=== PATIENT | male | born 1960 | race Caucasian/White ===

== ENCOUNTER 2018-02-15 16:02 | Inpatient (IN) | payer OTHER ==
[~2018-02-15] VITALS: Ht 162.6 cm; Wt 61.2 kg
[2018-02-15 16:06] VITALS: BP 133/89
--- NOTE | 2018-02-15 16:10 | NUR ---
PT. CAME INTO THE ED DUE TO CP X 3 DAYS AND FEELING HEART RACING. PT. STATES " I ATE SOME BAD CHICKEN ABOUT 3 DAYS AGO AND EVER SINCE THEN I THREW UP ONCE AND HAVE HAD DIARRHEA AND NOW I JUST FEEL MY HEART RACING AND MY CHEST HURTS". 8/10 SHARP CHEST PAIN THAT RADIATES TO BILAT ARMS AND DESCRIBED TINGLING. PT ABLE TO SPEAK IN FULL AND COMPLETE SENTENCES AND ALERT AND AWAKE AND RESPONSIVE. C/O NAUSEA. DENIES VOMITING . DIARRHEA X 3 DAYS LIQUID YELLOW. ER MD MADE AWARE. HR: 133 AT THIS TIME. NON DIAPHORETIC. SAFETY PRECAUTIONS IMPLEMENTED. WILL CONTINUE TO MONITOR.
[2018-02-15 17:21] LABS: BASOPHILS % (AUTO) 0.4 % (0.0-2.0); EOSINOPHILS # (AUTO) 0.1 K/uL (0-0.4); EOSINOPHILS % (AUTO) 1.5 % (0.0-4.0); HEMATOCRIT 33.8 % (36-52); HEMOGLOBIN 10.4 g/dL (12.0-18.0); LYMPHOCYTES # (AUTO) 1.1 K/uL (2.0-11.5); LYMPHOCYTES % (AUTO) 22.1 % (20.5-51.1); MEAN CORPUSCULAR HEMOGLOBIN 24 pg (27-31); MEAN CORPUSCULAR HGB CONC 31 g/dL (33-37); MEAN CORPUSCULAR VOLUME 76.6 fL (80-94); MONOCYTES # (AUTO) 0.4 K/uL (0.8-1.0); MONOCYTES % (AUTO) 7.8 % (1.7-9.3); NEUTROPHILS # (AUTO) 3.4 K/uL (1.8-7.7); NEUTROPHILS % (AUTO) 68.2 % (42.2-75.2); PLATELET COUNT (AUTO) 136 K/uL (140-450); RED BLOOD CELL COUNT(AUTO) 4.41 MIL/uL (4.20-6.10); RED CELL DISTRIBUTION WIDTH 22.5 % (11.6-13.7); WHITE BLOOD COUNT (AUTO) 4.9 K/uL (4.8-10.8)
[2018-02-15] MEDS ORDERED: ASPIRIN 81 MG TAB.CHEW PO ONE (17:25)
[2018-02-15] MEDS ORDERED: METOPROLOL 5 MG/5 ML VIAL IVP ONE (17:25)
--- NOTE | 2018-02-15 17:30 | NUR ---
PT. RESTING IN BED, PROVIDED WITH BLANKETS. PT AWAKE AND RESPONSIVE. WILL CONTINUE TO MONITOR.
--- NOTE | 2018-02-15 17:39 | NUR ---
HR: 134 LOPRESSOR 1MG IV PUSH GIVEN PER MD ORDER, HR: 100 AT THIS TIME. ER MD LATIF NOTIFIED. VERBAL ORDER TO HOLD GIVING ANY MORE LOPRESSOR. WILL CONTINUE TO MONITOR.
[2018-02-15 17:46] LABS: ANION GAP 13.7 (8-16); CREATININE 1.3 mg/dL (0.7-1.3); POTASSIUM 4.7 mmol/L (3.5-5.1)
[2018-02-15 17:49] LABS: ALBUMIN 2.3 g/dL (3.4-5.0); TOTAL BILIRUBIN 0.6 mg/dL (0.0-1.0)
--- NOTE | 2018-02-15 18:20 | NUR ---
PT. RESTING COMFORTABLY IN BED, RR EVEN AND UNLABORED. SLEEPING COMFORTABLY. WILL CONTINUE TO MONITOR.
[2018-02-15 19:15] LABS: BARBITURATE, URINE NEG. ng/ml (NEG <=200); BENZODIAZEPINE, URINE NEG. ng/mL (NEG <=200); CANNABINOID, URINE NEG. ng/mL (NEG <=50); COCAINE, URINE NEG. ng/mL (NEG <=300); OPIATE, URINE NEG. ng/mL (NEG <=2000); PHENCYCLIDINE SCREEN,URINE NEG. ng/mL (NEG <=25)
--- NOTE | 2018-02-15 19:20 | NUR ---
Pt report given to SONY TRUONG . Transfer of care at this time.
[2018-02-15] MEDS ORDERED: LORazepam 2 MG/ML VIAL IVP PRN (19:25)
[2018-02-15] MEDS ORDERED: ZOLPIDEM 5 MG TAB PO PRN (19:25)
[2018-02-15] MEDS ORDERED: MORPHINE SULFATE 2 MG/ML SYR IVP PRN (19:25)
[2018-02-15] MEDS ORDERED: DEXTROSE 50% 50 ML SYR IVP PRN (19:25)
[2018-02-15] MEDS ORDERED: ACETAMINOPHEN 325 MG TAB PO PRN (19:25)
[2018-02-15] MEDS ORDERED: NITROGLYCERIN 0.4 MG TAB SL PRN (19:25)
[2018-02-15] MEDS ORDERED: ONDANSETRON 4 MG/2 ML VIAL IVP PRN (19:25)
[2018-02-15] MEDS ORDERED: HYDROcodone/APAP 5/325 MG 1 TAB TAB PO PRN (19:25)
--- NOTE | 2018-02-15 19:30 | NUR ---
PT LAYING IN BED, AWAKE, VSS, PENDING ADMISSION.
--- NOTE | 2018-02-15 20:30 | NUR ---
Patient will be admitted to care of DR TORRES. Admited to TELE. Will go to room 105-A. Belongings list completed. Report to SONY GRECO.
--- NOTE | 2018-02-15 20:30 | NUR ---
ADMITTED THIS 58 YEAR OLD MALE FROM ER PER YOSEF WITH CC OF CHEST PAIN AND GENERALIZED WEAKNESS, AMBULATED TO BED WITH STEADY GAIT, ASSESSMENT DONE, VITAL SIGNS TAKEN, HR-118, FLUTTER ON TELE, BP STABLE, COMPLAINING OF NON-RADIATING CHEST PAIN, WILL MEDICATE PRN, NO SOB NOTED, SKIN INTACT WITH MULTIPLE TATTOOS TO MARBELLA ARMS, ORIENTED TO ROOM AND CALL LIGHT, PLAN OF CARE DISCUSS, SAFETY MEASURES IN PLACE, CALL LIGHT WITHIN REACH.
[2018-02-15] MEDS: SIMVASTATIN 20 MG TAB PO SCH (20:59)
[2018-02-15 21:00] VITALS: BP 122/77
[2018-02-15] MEDS: METOPROLOL 25 MG TAB PO SCH (21:00)
--- NOTE | 2018-02-15 21:00 | NUR ---
MEDICATED PRN FOR CHEST PAIN, DUE PO MEDS GIVEN WITH EDUCATION PROVIDED, BLOOD SUGAR CHECK WITH 91 RESULT, OFFERED SANDWICH BUT PT PREFER CRACKERS AT THIS TIME, RT WILIAM ASSESSED THE PT BUT NO RESP INTERVENTION AT THIS TIME, ALL NEEDS ATTENDED.
[2018-02-15] MEDS: BLOOD GLUCOSE MONITORING 1 DEV DEV FS SCH (21:01)
[2018-02-15] MEDS ORDERED: INFLUENZA VIRUS VACCINE QUAD 0.5 ML SYR IMVAC PRN (21:50)
[2018-02-16] VITALS (7 sets, daily range): BP systolic 103–137; BP diastolic 65–84
--- NOTE | 2018-02-16 00:20 | NUR ---
PT AMBULATED TO BR WITH STEADY GAIT TO TRY TO HAVE A BM, HR WENT UP TO 125-130 BPM WHILE WALKING, ASYMPTOMATIC, NO SOB NOTED, UNABLE TO HAVE A BM AT THIS TIME, PROVIDED WITH PRUNE JUICE, CONTINUE TO MONITOR CLOSELY.
[2018-02-16] MEDS: ALBUTEROL 0.083% 2.5 MG/3 ML NEBU INH SCH ×4 (00:22→19:02)
--- NOTE | 2018-02-16 01:44 | NUR ---
PT HR MAINTAINED ON 131-132 BPM ATRIAL FLUTTER WITH BBB, VITAL SIGNS TAKEN, BP-124/85, HR-131, SAT-99%, RR-20, TEMP-98.0, PT AWAKE, NO DISTRESS NOTED, PAGED DR MATIAS WITH ORDER TO GIVE METOPROLOL 5MG IVP ONE TIME DOSE, WILL CARRY OUT.
--- NOTE | 2018-02-16 01:56 | NUR ---
METOPROLOL 5MG IVP GIVEN ORDERED, HR OF 131 BPM IMMEDIATELY DROP TO 98-103 BPM WITH VARIABLE FLUTTER, PT ASYMPTOMATIC, MONITORED CLOSELY.
[2018-02-16] MEDS ORDERED: METOPROLOL 5 MG/5 ML VIAL IVP SCH (02:00)
[2018-02-16 02:49] LABS: CREATINE KINASE MB 2.3 ng/mL (0-3.6)
[2018-02-16] MEDS: MORPHINE SULFATE 2 MG/ML SYR IVP PRN ×4 (03:34→20:09)
--- NOTE | 2018-02-16 03:35 | NUR ---
PT BACK FROM , COMPLAINING OF CHEST PAIN, VITAL SIGNS TAKEN:BP-124/84, HR-122, RR-20, SAT-98%, MEDICATED PRN WITH MORPHINE IVP, MONITORED CLOSELY.
--- NOTE | 2018-02-16 04:30 | NUR ---
PT SLEEPING, NO SIGNS OF DISTRESS, ATRIAL FIB ON TELE WITH HR OF 104 BPM, CONTINUE TO MONITOR CLOSELY.
[2018-02-16 04:43] LABS: HEMATOCRIT 34.3 % (36-52); HEMOGLOBIN 10.6 g/dL (12.0-18.0); MEAN CORPUSCULAR HEMOGLOBIN 23 pg (27-31); MEAN CORPUSCULAR HGB CONC 31 g/dL (33-37); MEAN CORPUSCULAR VOLUME 75.8 fL (80-94); PLATELET COUNT (AUTO) 126 K/uL (140-450); RED BLOOD CELL COUNT(AUTO) 4.53 MIL/uL (4.20-6.10); RED CELL DISTRIBUTION WIDTH 22.9 % (11.6-13.7); WHITE BLOOD COUNT (AUTO) 5.1 K/uL (4.8-10.8)
[2018-02-16 05:32] LABS: ANION GAP 15.8 (8-16); CARBON DIOXIDE 18.5 mmol/L (21-32); CREATININE 1.2 mg/dL (0.7-1.3); POTASSIUM 4.3 mmol/L (3.5-5.1)
--- NOTE | 2018-02-16 05:50 | NUR ---
BLOOD SUGAR CHECKED WITH 79 RESULT, ASYMPTOMATIC, ORANGE JUICE X2 PROVIDED, TOLERATED WELL, NO DISTRESS NOTED.
[2018-02-16] MEDS: BLOOD GLUCOSE MONITORING 1 DEV DEV FS SCH ×4 (06:31→20:38)
[2018-02-16 07:05] LABS: EOSINOPHILS % (MANUAL) 1 % (0-4); LYMPHOCYTES % (MANUAL) 26 % (20-46); MONOCYTES % (MANUAL) 6 % (5-12)
--- NOTE | 2018-02-16 07:10 | NUR ---
PT SLEEPING, NO SIGNS OF DISTRESS, REPORT GIVEN TO SONY LORENZO FOR CONTINUITY OF CARE.
--- NOTE | 2018-02-16 07:15 | NUR ---
RECEIVED PT FROM COAL AND ASH SUPERVISOR NURSEANGUS, PT IS ASLEEP LYING ON THE BED WITH SIDE RAILS UP AND CALL LIGHT WITHIN REACH, RESPIRATION IS EVEN AND PT IS ON 2L O2 NC IN PLACED, SAFETY AND FALL PRECAUTION ENFORCED. PT HAS AN IV LINE ON SALINE LOCK ON THE LEFT FA G. 22, INTACT, WILL CONTINUE TO MONITOR PT.
[2018-02-16] MEDS: ASPIRIN 81 MG TAB.CHEW PO SCH (08:18)
[2018-02-16] MEDS: METOPROLOL 25 MG TAB PO SCH ×2 (08:18→20:08)
--- NOTE | 2018-02-16 08:20 | NUR ---
INFORMED DR. TORRES THAT PT WANTS TO BE PUT ON DNR CODE, DR. TORRES AFFIXED SIGNATURE ON THE CODE STATUS FORM.
[2018-02-16] MEDS: ENOXAPARIN 40 MG/0.4 ML SYR SUBQ SCH (08:24)
--- NOTE | 2018-02-16 08:39 | NUR ---
PATIENT HAS BEEN SCREENED AND CATEGORIZED HIGH NUTRITION RISK. PATIENT WILL BE SEEN WITHIN 1-2 DAYS OF ADMISSION. 02/16/18-02/17/[address]
--- NOTE | 2018-02-16 08:42 | NUR ---
PT IS AWAKE AND ORAL MEDICATIONS WERE GIVEN, AND PT TOLERATED IT, LOVENOX WAS HOLD OFF DUE TO LOW PLATELET COUNT, INFORMED DR. TORRES. WILL CONTINUE TO MONITOR PT.
[2018-02-16] MEDS ORDERED: FUROSEMIDE 40 MG TAB PO SCH (09:00)
--- NOTE | 2018-02-16 10:27 | NUR ---
CRUZ FROM [facility] CALLED AND IS RECOMMENDING A CARDIAC AND CCHO DIET FOR THE PT, ACKNOWLEDGED.
--- NOTE | 2018-02-16 10:41 | NUR ---
KERMIT FROM CALLED AND INFORMED THAT PT WAS BEING ARRANGED FOR AN APPOINTMENT WITH [facility] AND KERMIT FROM SPOKE TO AMALIA AND AMALIA SAID THAT PT NEEDS TO BE THE ONE TO CALL THE CLINIC HIMSELF AND SET AN APPOINTMENT WITH THEM FOR THE REASON THAT PT HAD MISSED 3 SCHEDULED APPOINTMENTS IN THE PAST, ACKNOWLEDGED KERMIT FROM AND WILL INFORM PT ABOUT IT.
--- NOTE | 2018-02-16 10:45 | NUR ---
Called Dr. [facility]uera[facility] clinic to make follow up appointment for patient Rodriguez Ribera and spoke with Mary. Mary wants Mr. Rodriguez Ribera to call the clinic and make his own appointment since he has failed to show up the last 3 appointments he had. Notified Bhakti nurse of Mr. Rodriguez Ribera to give instructions upon discharge that patient himself has to make the follow up appointment with Dr. Higuera.
--- NOTE | 2018-02-16 11:00 | NUR ---
INFORMED PT THAT WHEN HE WILL BE DISCHARGE HE SHOULD CALL THE CLINIC OF DR. MILLER AND MAKE AN APPOINTMENT PER AMALIA FROM THE DR'S CLINIC BECAUSE HE MISSED THE LAST 3 APPOINTMENTS, PT VERBALIZED UNDERSTANDING AND AGREED TO DO IT.
[2018-02-16] MEDS: INSULIN LISPRO SLIDING SCALE 100 UNITS/ML VIAL SUBQ PRN ×2 (12:10→16:40)
--- NOTE | 2018-02-16 13:33 | NUR ---
02/16/18 RD INITIAL ASSESSMENT COMPLETED PLEASE REFER TO NUTRITION ASSESSMENT UNDER CARE ACTIVITY FOR ESTIMATED NUTRITIONAL NEEDS. 1. CONTINUE CCHO, CARDIAC DIET TOLERATED 2. PROVIDED EDUCATION ON DIABETES AND NUTRITION LABEL READING 3. RD TO FOLLOW-UP 3-5 DAYS, MODERATE RISK CRUZ LINDSAY RD
--- NOTE | 2018-02-16 16:42 | NUR ---
PT IS AWAKE AND SEATED ON THE BED, WATCHING TV, BLOOD GLUCOSE CHECK DONE AND RESULT IS 218, INSULIN 4 UNITS WAS GIVEN SUBQ AT THE LEFT UA, PT TOLERATED IT, WILL CONTINUE TO MONITOR.
--- NOTE | 2018-02-16 17:21 | NUR ---
SPOKE TO DR. TORRES AND INFORMED MD OF THE PT'S TROPONIN LEVEL OF 0.062, DR. TORRES MADE A VERBAL ORDER FOR A CONSULTATION WITH DR. VALERIA YUAN TO SEE THE PT. ACKNOWLEDGED AND WILL CARRY OUT ORDER.
--- NOTE | 2018-02-16 17:50 | NUR ---
CALLED DR. VALERIA YUAN AND INFORMED MD OF THE CONSULTATION FOR THE PT ORDERED BY DR. TORRES, DR. YUAN SAID THAT HE WILL SEE THE PT.
[2018-02-16] MEDS: FUROSEMIDE 40 MG/4 ML VIAL IVP SCH (18:38)
--- NOTE | 2018-02-16 19:20 | NUR ---
ENDORSED PT TO PATIENT SAFETY MANAGER NURSE, NIK FOR CONTINUITY OF CARE, PT IS STABLE AT THIS TIME.
--- NOTE | 2018-02-16 19:21 | NUR ---
RECEIVED PT IN STABLE CONDITION FROM AM NURSE. AWAKE,ALERT AND ORIENTED X4. ON TELE -AFIB. NO C/O ANY DISCOMFORT NOR PAIN NOTED AT THIS TIME. HAS HL ON THE LT FA#22. CLEAR AND PATENT. PLAN OF CAR DISCUSSED AND VERBALIZED UNDERSTANDING. BED ON LOW POSITION, FREQUENT ROUNDS NEEDED. CALL LIGHT PLACED WITHIN EASY REACH. INSTRUCTED TO CALL FOR ANY ASSISTANCE LIKE GETTING OU OF BED. WILL CONTINUE TO MONITOR.
[2018-02-16] MEDS: SIMVASTATIN 20 MG TAB PO SCH (20:08)
--- NOTE | 2018-02-16 21:28 | NUR ---
CHECKED ON PT. AWAKE. NO DISCOMFORT NOR PAIN AND DISTRESS NOTED. HR ON MONITOR 87/MIN A FIB
--- NOTE | 2018-02-16 22:23 | NUR ---
MADE ROUNDS. PT ASLEEP. NO S/S FO ANY DISTRESS NOR DISCOMFORT NOTED.
--- NOTE | 2018-02-16 22:41 | NUR ---
VALERIA SEVILLA CALL AND ASKED ABOUT PT CONDITION. MADE AWARE OF THE CONSULT. WILL SEE PT IN AM.
[2018-02-17] VITALS (7 sets, daily range): BP systolic 12–156; BP diastolic 69–92
--- NOTE | 2018-02-17 00:35 | NUR ---
TELE MONITOR HR 131. CHECKED ON PT. SLEEPING. HE SAID NO CHEST PAIN OR ANY DISCOMFORT. BP 131/84, HR-129,R-18. HE SAID HE IS OK. WILL CONTINUE TO MONITOR.
--- NOTE | 2018-02-17 02:18 | NUR ---
HR HAS BEEN ON HIGH 131-132/MIN . IRREGULAR A FIB. PAGED DR. LISSY Rubio WILL WAIT FOR CALL BACK.
[2018-02-17] MEDS ORDERED: DILTIAZEM 25 MG/5 ML VIAL IVP ONE (02:45)
[2018-02-17] MEDS ORDERED: DIGOXIN 0.25 MG/ML AMP IV ONE ×2 (02:45→06:32)
--- NOTE | 2018-02-17 02:45 | NUR ---
CALLED BACK AND MADE AWARE ABOUT THE PT ELEVATED HR OF 131 SINCE 34. WITH BP 131/84 .PT SAID NO DISCOMFORT BUT JUST FEEL TIRED. WITH ORDERS CARRIED OUT.
--- NOTE | 2018-02-17 03:07 | NUR ---
@[id number] 10 MG IVP ONCE ORDERED GIVEN FOR HR 130-131/MIN. WITH BP 115/77. AFTER 4 MINUTES HR DOWN TO 97/MIN. BP 102/63,R-18 O2 SAT 99%ROOM AIR. NO DISCOMFORT NOR PAIN NOTED. WILL STILL CONTINUE TO MONITOR.
[2018-02-17] MEDS: BLOOD GLUCOSE MONITORING 1 DEV DEV FS SCH ×4 (06:00→20:55)
[2018-02-17 06:25] LABS: BASOPHILS % (AUTO) 0.4 % (0.0-2.0); EOSINOPHILS # (AUTO) 0.1 K/uL (0-0.4); EOSINOPHILS % (AUTO) 1.2 % (0.0-4.0); HEMOGLOBIN 9.7 g/dL (12.0-18.0); LYMPHOCYTES # (AUTO) 1.3 K/uL (2.0-11.5); LYMPHOCYTES % (AUTO) 27.2 % (20.5-51.1); MEAN CORPUSCULAR HEMOGLOBIN 24 pg (27-31); MEAN CORPUSCULAR HGB CONC 31 g/dL (33-37); MEAN CORPUSCULAR VOLUME 75.3 fL (80-94); MONOCYTES # (AUTO) 0.5 K/uL (0.8-1.0); MONOCYTES % (AUTO) 9.4 % (1.7-9.3); NEUTROPHILS % (AUTO) 61.8 % (42.2-75.2); PLATELET COUNT (AUTO) 127 K/uL (140-450); RED BLOOD CELL COUNT(AUTO) 4.12 MIL/uL (4.20-6.10); RED CELL DISTRIBUTION WIDTH 22.8 % (11.6-13.7); WHITE BLOOD COUNT (AUTO) 4.8 K/uL (4.8-10.8)
--- NOTE | 2018-02-17 06:32 | NUR ---
HR ELEVATED AGAIN @123/MIN. DIGOXIN 0.5 MG IVP GIVEN ORDERED. WILL FOLLOW UP POST DIGOXIN HR.
[2018-02-17 07:06] LABS: MAGNESIUM 1.6 mg/dL (1.8-2.4); THYROID STIMULATING HORMONE 4.89 uIU/mL (0.34-3.74)
--- NOTE | 2018-02-17 07:10 | NUR ---
RECEIVED PATIENT REPORT AT BEDSIDE. PATIENT ASLEEP BUT AROUSABLE. NO S/S OF DISTRESS AT THIS TIME. PATIENT ON ROOM AIR. NO SOB, NO C/O PAIN. PT ON TELE MONITORING. BED LOWERED WITH CALL LIGHT WITHIN REACH. WILL CONTINUE TO MONITOR
[2018-02-17] MEDS: ALBUTEROL 0.083% 2.5 MG/3 ML NEBU INH SCH ×4 (07:36→18:54)
--- NOTE | 2018-02-17 07:47 | NUR ---
RECEIVED PATIENT ON ROOM AIR, 02 SAT 98%, SCHEDULED BREATHING TREATMENT ADMINISTERED. PT TOLERATED TX WELL, NO ADVERSE SIDE EFFECTS. NO RESPIRATORY DISTRESS NOTED AT THIS TIME. WILL CONTINUE TO MONITOR.
[2018-02-17] MEDS: MORPHINE SULFATE 2 MG/ML SYR IVP PRN ×3 (08:16→23:28)
[2018-02-17] MEDS: FUROSEMIDE 40 MG/4 ML VIAL IVP SCH ×2 (08:18→18:08)
[2018-02-17] MEDS: ASPIRIN 81 MG TAB.CHEW PO SCH (08:18)
[2018-02-17] MEDS: METOPROLOL 25 MG TAB PO SCH ×2 (08:18→20:55)
--- NOTE | 2018-02-17 08:18 | NUR ---
SCHEDULED MEDICATIONS ADMINISTERED. NO S/S OF DISTRESS NOTED
[2018-02-17] MEDS: ENOXAPARIN 40 MG/0.4 ML SYR SUBQ SCH (08:25)
[2018-02-17] MEDS: INSULIN LISPRO SLIDING SCALE 100 UNITS/ML VIAL SUBQ PRN ×3 (12:26→20:57)
--- NOTE | 2018-02-17 13:51 | NUR ---
SCHEDULED BREATHING TREATMENT ADMINISTERED. PATIENT TOLERATED TX WELL, NO ADVERSE SIDE EFFECTS. NO RESPIRATORY DISTRESS NOTED. WILL CONTINUE TO MONITOR.
--- NOTE | 2018-02-17 14:00 | NUR ---
PATIENT AWAKE IN BED, WATCHING TELEVISION. NO S/S OF DISTRESS NOTED
[2018-02-17 14:20] LABS: ANION GAP 18.9 (8-16); CARBON DIOXIDE 16.1 mmol/L (21-32); CREATININE 1.3 mg/dL (0.7-1.3)
[2018-02-17] MEDS: metFORMIN 500 MG TAB PO SCH (18:07)
--- NOTE | 2018-02-17 19:23 | NUR ---
PATIENT REPORT GIVEN AT BEDSIDE. PATIENT ENDORSED IN STABLE CONDITION
--- NOTE | 2018-02-17 19:24 | NUR ---
RECEIVED PT IN STABLE CONDITION FROM AM NURSE. AWAKE,ALERT AND ORIENTED X4. ON TELE MONITOR - AFIB /BBB. WITH NO C/O ANY DISCOMFORT NOR PAIN NOTED AT THIS TIME. GETTING BREATHING TREATMENT. HAS HL ON THE LT FA G#22. CLEAR AND PATENT. PLAN OF CARE DISCUSSED AND VERBALIZED UNDERSTANDING. BED ON LOWEST POSITION. FREQUENT ROUNDS NEEDED. CALL LIGHT AND URINAL WITHIN EASY REACH. WILL CONTINUE TO MONITOR.
--- NOTE | 2018-02-17 20:04 | NUR ---
MAGNESIUM LEVEL 1.[address] VELASCO ROLLING MACHINE OPERATOR AUTOMATIC. CALLED BACK MADE HIM AWARE. WITH ORDER TO GIVE MAGNESIUM 2GM IV ONCE.
[2018-02-17] MEDS ORDERED: MAG SULF 2000 MG/WATER PREMIX 50 ML IV SCH (20:30)
[2018-02-17] MEDS: SIMVASTATIN 20 MG TAB PO SCH (20:55)
[2018-02-17] MEDS: APIXABAN 2.5 MG TAB PO SCH (20:56)
--- NOTE | 2018-02-17 22:30 | NUR ---
SLEEPING AT THIS TIME. NO S/S OF ANY DISCOMFORT NOTED.
--- NOTE | 2018-02-17 23:30 | NUR ---
PT GOT UP TO THE BATHROOM FEW MINUTES AGO. THEN C/O CHEST PAIN. 11/29 .MEDICATED ORDERED FRO PAIN. WILL CONTINUE TO MONITOR.
[2018-02-18] MEDS: ALBUTEROL 0.083% 2.5 MG/3 ML NEBU INH SCH ×2 (00:47→08:01)
--- NOTE | 2018-02-18 01:00 | NUR ---
PT STILL GETTING BREATHING TREATMENTS A THIS TIME. N C/O ANY PAIN NOTED.
--- NOTE | 2018-02-18 03:00 | NUR ---
PT ASLEEP. NO S/S OF ANY DSICOM,FORT NOR PAIN NOTED. WILL CONTINUE TO MONITOR.
[2018-02-18 03:45] VITALS: BP 127/60
[2018-02-18] MEDS: BLOOD GLUCOSE MONITORING 1 DEV DEV FS SCH (06:01)
[2018-02-18] MEDS: INSULIN LISPRO SLIDING SCALE 100 UNITS/ML VIAL SUBQ PRN (06:02)
--- NOTE | 2018-02-18 06:02 | NUR ---
BLOOD SUGAR WAS CHECKED RESULT 170. INSULIN COVERAGE GIVEN SUBQ.
[2018-02-18 06:43] LABS: ANION GAP 10.9 (8-16); CARBON DIOXIDE 26.4 mmol/L (21-32); POTASSIUM 3.3 mmol/L (3.5-5.1)
[2018-02-18 06:51] LABS: BASOPHILS % (AUTO) 0.3 % (0.0-2.0); EOSINOPHILS # (AUTO) 0.1 K/uL (0-0.4); EOSINOPHILS % (AUTO) 2.6 % (0.0-4.0); HEMATOCRIT 28.8 % (36-52); HEMOGLOBIN 9.3 g/dL (12.0-18.0); LYMPHOCYTES # (AUTO) 1.1 K/uL (2.0-11.5); LYMPHOCYTES % (AUTO) 27.6 % (20.5-51.1); MEAN CORPUSCULAR HEMOGLOBIN 24 pg (27-31); MEAN CORPUSCULAR HGB CONC 32 g/dL (33-37); MEAN CORPUSCULAR VOLUME 74.6 fL (80-94); MONOCYTES # (AUTO) 0.4 K/uL (0.8-1.0); NEUTROPHILS # (AUTO) 2.4 K/uL (1.8-7.7); NEUTROPHILS % (AUTO) 59.5 % (42.2-75.2); PLATELET COUNT (AUTO) 128 K/uL (140-450); RED BLOOD CELL COUNT(AUTO) 3.85 MIL/uL (4.20-6.10); RED CELL DISTRIBUTION WIDTH 22.3 % (11.6-13.7); WHITE BLOOD COUNT (AUTO) 4.1 K/uL (4.8-10.8)
--- NOTE | 2018-02-18 07:20 | NUR ---
ENDORSED PT IN STABLE CONDITION TO AM NURSE.
--- NOTE | 2018-02-18 07:25 | NUR ---
RECEIVED PT FROM FURNITURE MOVER HELPER, NIK, PT IS AWAKE AND LYING ON THE BED, WITH A PERIPHERAL LINE ON THE LEFT FA G. 22, INTACT ON SALINE LOCK, PT DENIES PAIN AT THIS TIME AND NO SIGN OF DISTRESS NOTED. WILL CONTINUE TO MONITOR PT.
--- NOTE | 2018-02-18 07:55 | NUR ---
PT IS AWAKE AND HAVING HIS BREAKFAST, VITAL SIGNS TAKEN AND IS WITHIN NORMAL LIMITS, PT DENIES PAIN. WILL CONTINUE TO MONITOR.
[2018-02-18 08:00] VITALS: BP 131/60
[2018-02-18] MEDS ORDERED: glipiZIDE ER 5 MG TABER PO SCH (08:00)
[2018-02-18] MEDS: metFORMIN 500 MG TAB PO SCH (08:00)
--- NOTE | 2018-02-18 08:20 | NUR ---
CAME TO PT'S ROOM AND SPOKE TO PT, PT SAID THAT HE WANTS TO GO AMA BECAUSE HIS DAUGHTER HAD AN ACCIDENT AND IN COMA IN THE HOSPITAL, INFORMED THE PT TO WAIT AND THE NECESSARY PAPER WILL BE FURNISHED THAT HE NEEDS TO SIGN AND PT VERBALIZED UNDERSTANDING.
--- NOTE | 2018-02-18 08:25 | NUR ---
PAGED DR. TORRES TO INFORM ABOUT THE PT'S DECISION TO LEAVE AMA. AWAITING FOR MD CALL BACK.
[2018-02-18] MEDS ORDERED: POTASSIUM CHLORIDE 10 MEQ TABER PO SCH (08:30)
--- NOTE | 2018-02-18 08:35 | NUR ---
CAME IN TO PT'S ROOM AND FOUND THAT PT WAS NOT IN THE ROOM, HEART MONITOR ON THE BED, CHARGE NURSE, CRIS INFORMED, AND SECURITY WAS CALLED AND REPORTED THE INCIDENT TO HECTOR.
--- NOTE | 2018-02-18 08:37 | NUR ---
PT ORAL MEDICATIONS WERE NOT GIVEN BECAUSE PT JOAQUIN, CHARGE NURSE, CRIS WAS NOTIFIED OF THE INCIDENT.
--- NOTE | 2018-02-18 08:56 | NUR ---
SPOKE TO HECTOR THE SECURITY AND SHE SAID THAT PT LEFT AT AROUND 0828, IN A HURRY AND WENT OUT OF THE MAIN LOBBY.
[2018-02-18] MEDS: METOPROLOL 25 MG TAB PO SCH (09:00)
[2018-02-18] MEDS ORDERED: AMIODARONE 200 MG TAB PO SCH (09:00)
[2018-02-18] MEDS: ASPIRIN 81 MG TAB.CHEW PO SCH (09:00)
[2018-02-18] MEDS: APIXABAN 2.5 MG TAB PO SCH (09:00)
[2018-02-18] MEDS: FUROSEMIDE 40 MG/4 ML VIAL IVP SCH (09:00)
--- NOTE | 2018-02-18 10:09 | NUR ---
SPOKE TO HECTOR OF SECURITY AND ASKED IF SHE REPORTED THE ELOPEMENT OF THE PT TO PD, BECAUSE PT ELOPED WITH THE IV STILL IN PLACE, HECTOR SAID THAT SHE WILL SPEAK WITH UTILIZATION SPECIALIST, ROSE REGARDING THE REPORTING OF THE INCIDENT TO PD.
--- NOTE | 2018-02-18 13:51 | NUR ---
WENT TO ADMINISTER BREATHING TX PT WAS NOT IN RM. NURSE AWARE.
== END 2018-02-18 08:35 | disposition left against medical advice (07) | DRG 201 ==
LOC: MED 16:02 → MTU 19:25 → OBSVTOIN 20:46
PROVIDERS: ADMIT Internal Medicine; ATTEND Internal Medicine
DX: I48.91 Unspecified atrial fibrillation (principal); I50.23 Acute on chronic systolic (congestive) heart failure; E11.51 Type 2 diabetes mellitus with diabetic peripheral angiopathy without gangrene; I42.9 Cardiomyopathy, unspecified; I25.10 Atherosclerotic heart disease of native coronary artery without angina pectoris; I48.92 Unspecified atrial flutter; I11.0 Hypertensive heart disease with heart failure; K76.0 Fatty (change of) liver, not elsewhere classified; M19.90 Unspecified osteoarthritis, unspecified site; F17.210 Nicotine dependence, cigarettes, uncomplicated; E78.5 Hyperlipidemia, unspecified; Z53.21 Procedure and treatment not carried out due to patient leaving prior to being seen by health care provider; Z95.1 Presence of aortocoronary bypass graft; Z79.01 Long term (current) use of anticoagulants; Z85.038 Personal history of other malignant neoplasm of large intestine; Z59.0 Homelessness; Z83.3 Family history of diabetes mellitus
CPT/HCPCS: 99285; G0378; 36415; 71045; 80048; 80053; 80305; 82550; 82553; 82948; 83735; 83880; 84436; 84443; 84484; 85025; 85610; 85730; 87081; 93005; 94640; J1160; J1650; J1815; J1940; J2270; J2405; J3475; J3490; J7030; J7613; Q0092

== ENCOUNTER 2018-03-19 17:40 | Emergency (ER) | payer OTHER ==
[~2018-03-19] VITALS: Ht 154.9 cm; Wt 65.8 kg
[2018-03-19 17:44] VITALS: BP 156/71
--- NOTE | 2018-03-19 17:47 | NUR ---
PT TRIAGED AND SENT TO ER LOBBY.
--- NOTE | 2018-03-19 19:14 | NUR ---
PT REASSESSED, CONDITION UNCHANGED. VSS.
--- NOTE | 2018-03-19 20:52 | NUR ---
PT TAKEN TO BED 3
--- NOTE | 2018-03-19 20:55 | NUR ---
PATIENT PRESENTS TO ED WITH LEG PAIN AND BAACK PAIN . PT STATES HE HAS CHRONIC PAIN. DENIES N/V/D; SKIN IS PINK/WARM/DRY; AAOX4 WITH EVEN AND STEADY GAIT; LUNGS CLEAR BL; HR EVEN AND REGULAR; PATIENT STATES PAIN OF 9/10 AT THIS TIME; VSS; PATIENT POSITIONED FOR COMFORT; HOB ELEVATED; BEDRAILS UP X2; BED DOWN. ER MD MADE AWARE OF PT STATUS.
[2018-03-19] MEDS ORDERED: KETOROLAC 30 MG/ML VIAL IM ONE (21:35)
[2018-03-19 22:17] LABS: ANION GAP 14.7 (8-16); CARBON DIOXIDE 25.6 mmol/L (21-32); CREATININE 1.2 mg/dL (0.7-1.3); POTASSIUM 4.3 mmol/L (3.5-5.1)
--- NOTE | 2018-03-19 23:00 | NUR ---
PT WAS GIVEN A HOMELESS WAIVER AND RESOURCE PACKET.
[2018-03-19 23:20] VITALS: BP 138/78
--- NOTE | 2018-03-19 23:20 | NUR ---
Patient discharged with v/s stable. Written and verbal after care instructions given and explained. Patient alert, oriented and verbalized understanding of instructions. Ambulatory with steady gait. All questions addressed prior to discharge. ID band removed. Patient advised to follow up with PMD. Rx of NAPROSYN WAS given. Patient educated on indication of medication including possible reaction and side effects. Opportunity to ask questions provided and answered.
== END 2018-03-19 23:20 | disposition home or self-care (01) ==
LOC: MED 17:40
DX: M79.18 Myalgia, other site (principal); R07.89 Other chest pain; E11.9 Type 2 diabetes mellitus without complications; I10 Essential (primary) hypertension; Z59.0 Homelessness
CPT/HCPCS: 36415; 71045; 80048; 93005; 96372; 99284; J1885; Q0092

== ENCOUNTER 2018-04-03 18:38 | Inpatient (IN) | payer OTHER ==
[~2018-04-03] VITALS: Ht 162.6 cm; Wt 53.1 kg
[2018-04-03 18:44] VITALS: BP 153/87
--- NOTE | 2018-04-03 18:59 | NUR ---
58 YO M HOMELESS;BIB SELF W/ C/O GENERALIZED WEAKNESS , CP, BACK PAIN & BODY ACH X TODAY. BLIND IN HIS LEFT EYE ALREADY. PT AMBULATORY W/ SLOW, STEADY GAIT. RIGHT HAND CHAKING.PATIENT STATES PAIN OF 10/10 AT THIS TIME. PATIENT POSITIONED FOR COMFORT; HOB ELEVATED; BEDRAILS UP X2; BED DOWN. ER MD MADE AWARE OF PT STATUS. HX LEFT EYE BLINDNESS, OPEN HEART SURGERY WHEN YOUNGER, ARTHRITIS, HTN, DM.
--- NOTE | 2018-04-03 18:59 | NUR ---
Note undone in EDM - 04/03/18 at 1910 by [email or web address] 58 YO M BIB SELF W/ C/O GENERALIZED WEAKNESS X TODAY. PT ALSO STATES THAT HIS VISION IS"GOING". STATES THAT HE IS BLIND IN HIS LEFT EYE ALREADY. PT DEPTH PERCEPTION IS OFF. PT AMBULATORY W/ SLOW, STEADY GAIT. PT STATES HE WALKED HERE FROM HIS SISTER'S HOUSE. PT STATES SINCE THE WALK, HE HAS SOME CHEST DISCOMFORT AND BURNING PAINS IN HIS RECTUM SINCE HAVING BM WHILE IN [place] [employer]. PT AAOX4, GCS 15. PT STATES THAT [place] IS HOMLESS AND [place] RIGHT HAND CHAKING.PATIENT STATES PAIN OF 10/10 AT THIS TIME. PATIENT POSITIONED FOR COMFORT; HOB ELEVATED; BEDRAILS UP X2; BED DOWN. ER MD MADE AWARE OF PT STATUS. HX LEFT EYE BLINDNESS, OPEN HEART SURGERY WHEN YOUNGER, ARTHRITIS, HTN, DM.
--- NOTE | 2018-04-03 19:18 | NUR ---
REPORT GIVEN TO RUBI CARDOZA.
--- NOTE | 2018-04-03 19:20 | NUR ---
ASSUMED CARE OF PT AT THIS TIME. PT AWAITS MD JIMÉNEZ. ADINA. VSS. WILL CONTINUE TO MONITOR.
--- NOTE | 2018-04-03 19:37 | NUR ---
Dr. Bean evaluating patient at bedside.
[2018-04-03] MEDS ORDERED: MORPHINE SULFATE 4 MG/ML SYR IVP ONE (19:45)
[2018-04-03] MEDS ORDERED: LACTULOSE 20 GM/30 ML UDC PO ONE (19:45)
[2018-04-03] MEDS ORDERED: ASPIRIN 325 MG TAB PO ONE (19:45)
--- NOTE | 2018-04-03 19:56 | NUR ---
EKG PERFORMED AT BEDSIDE. PT COVERED IN GOWN AND BLANKET DURING PROCEDURE
[2018-04-03 20:20] LABS: BASOPHILS # (AUTO) 0.1 K/uL (0.00-0.22); BASOPHILS % (AUTO) 1.2 % (0.0-2.0); EOSINOPHILS # (AUTO) 0.1 K/uL (0-0.4); EOSINOPHILS % (AUTO) 1.4 % (0.0-4.0); HEMATOCRIT 33.1 % (36-52); HEMOGLOBIN 10.4 g/dL (12.0-18.0); LYMPHOCYTES # (AUTO) 1.2 K/uL (2.0-11.5); LYMPHOCYTES % (AUTO) 25.8 % (20.5-51.1); MEAN CORPUSCULAR HEMOGLOBIN 23 pg (27-31); MEAN CORPUSCULAR HGB CONC 31 g/dL (33-37); MEAN CORPUSCULAR VOLUME 72.8 fL (80-94); MONOCYTES # (AUTO) 0.4 K/uL (0.8-1.0); MONOCYTES % (AUTO) 7.6 % (1.7-9.3); NEUTROPHILS # (AUTO) 3.1 K/uL (1.8-7.7); PLATELET COUNT (AUTO) 181 K/uL (140-450); RED BLOOD CELL COUNT(AUTO) 4.54 MIL/uL (4.20-6.10); RED CELL DISTRIBUTION WIDTH 20.9 % (11.6-13.7); WHITE BLOOD COUNT (AUTO) 4.8 K/uL (4.8-10.8)
[2018-04-03 20:40] LABS: ANION GAP 13.1 (8-16); CARBON DIOXIDE 27.1 mmol/L (21-32); CREATININE 1.1 mg/dL (0.7-1.3); POTASSIUM 4.2 mmol/L (3.5-5.1)
[2018-04-03 20:45] LABS: ALBUMIN 3.1 g/dL (3.4-5.0); TOTAL BILIRUBIN 0.7 mg/dL (0.0-1.0)
--- NOTE | 2018-04-03 22:00 | NUR ---
Patient will be admitted to care of [facility]. Admitted to TELE. Will go to room 105B. Belongings list completed. Report to SONY WAGNER.
--- NOTE | 2018-04-03 22:00 | NUR ---
RECEIVED FROM ER PER ALLY AWAKE AND ALERT. NEW ADMIT MALE PT. WITH DIAGNOSIS OF CHEST PAIN AND CHF. TELEMETRY MONITORING. PT. ABLE TO VERBALIZE NEEDS WELL. CALL LIGHT WITH IN REACH AND CARE PLANS FOR THE NIGHT DISCUSSED WITH PT. ROM X 4. A/O X 4. AFEBRILE. ABLE TO VERBALIZE NEEDS WELL. IVF SITE TO LAC #22. SKIN INTACT.
[2018-04-03] MEDS ORDERED: NITROGLYCERIN 0.4 MG TAB SL PRN (23:40)
[2018-04-04 00:10] VITALS: BP 161/95
[2018-04-04] MEDS: MORPHINE SULFATE 4 MG/ML SYR IVP PRN ×2 (00:18→09:14)
--- NOTE | 2018-04-04 00:23 | NUR ---
PT. REQUESTED FOR PAIN RELIEVER. MEDICATED ORDERED WITH MORPHINE IVP 2 MG. DX. CHEST PAIN.
--- NOTE | 2018-04-04 02:10 | NUR ---
PT. SLEEPING WELL POST PAIN RELIEVER ADMINISTRATION. CALL LIGHT WITH IN REACH.
[2018-04-04 06:08] VITALS: BP 133/69
[2018-04-04] MEDS: FUROSEMIDE 40 MG/4 ML VIAL IVP SCH ×2 (06:21→12:50)
[2018-04-04] MEDS: ASPIRIN 81 MG TAB.CHEW PO SCH ×4 (06:21→18:18)
--- NOTE | 2018-04-04 06:52 | NUR ---
PT. SLEPT WELL THIS SHIFT. ABLE TO AMBULATE TO RESTROOM BY HIMSELF. PT. A/O X 4. ROM X 4. CLEAR SPEECH. HEP LOCKED.
--- NOTE | 2018-04-04 07:33 | NUR ---
ENDORSED TO THE NEXT RN FOR CONTINUITY OF CARE. AWAKE AND ALERT.
--- NOTE | 2018-04-04 07:38 | NUR ---
RECEIVED PT FROM CASH CONTROLLER NURSE, PT IS AWAKE AND LYING ON THE BED WITH SIDE RAILS UP AND CALL LIGHT WITHIN REACH., ON SEIZURE PRECAUTION. PT HAS AN IV LINE ON THE LEFT AC G. 22 ON SALINE LOCK. PT DENIES PAIN AND NO SOB NOTED. NO SIGN OF DISTRESS NOTED AND WILL CONTINUE TO MONITOR PT.
--- NOTE | 2018-04-04 07:52 | NUR ---
PATIENT HAS BEEN SCREENED AND CATEGORIZED MODERATE NUTRITION RISK. PATIENT WILL BE SEEN WITHIN 3-5 DAYS OF ADMISSION. 04/06/18 04/08/[address]
[2018-04-04] MEDS ORDERED: CARVEDILOL 3.125 MG TAB PO SCH (09:00)
[2018-04-04 09:24] LABS: THYROID STIMULATING HORMONE 4.04 uIU/mL (0.34-3.74)
[2018-04-04 12:00] VITALS: BP 133/73
--- NOTE | 2018-04-04 12:48 | NUR ---
PT IS AWAKE AND EATING HIS LUNCH, ASPIRIN WAS GIVEN TO PT AND PT TOLERATED IT, BUT PT REFUSED TO TAKE THE LASIX, ACKNOWLEDGED AND WILL INFORM THE MD.
--- NOTE | 2018-04-04 14:22 | NUR ---
ASHLEY FROM SOCIAL SERVICE CAME TO THE PT'S ROOM BUT PT REFUSED TO TALK TO THE MORTISING MACHINE OPERATOR.
--- NOTE | 2018-04-04 14:22 | NUR ---
Grinder Note: I met with patient at bedside. I introduced myself to patient and explained my role as a biomedical field service engineer. Per patient, he prefers not to speak to me and does not need any assistance from social media specialist, patient's nurse Bhakti made aware.
--- NOTE | 2018-04-04 14:53 | NUR ---
Out patient follow up given to pt to see PCP Dr. Garth Higuera on 04/06/18 at 1110. Clinic address [address] [place] [address]. [address] [place] [address]. Clinic number . Pt verbalize understanding. Issa Bruno RN pt has a follow up appt with PCP.
--- NOTE | 2018-04-04 15:24 | NUR ---
Faxed clinicals to Dr. Garth Higuera's clinic as requested by Janet. Pt's last visit was 2015.
[2018-04-04 16:00] VITALS: BP 139/72
--- NOTE | 2018-04-04 18:50 | NUR ---
DISCHARGED PT VIA WHEELCHAIR, DISCHARGED TEACHINGS AND INSTRUCTIONS GIVEN AND PT VERBALIZED UNDERSTANDING. IV AND ARM BANDS REMOVED. PT IS STABLE AT THIS TIME. PT WAS GIVEN TWO BUS PASSES AND UMBRELLA.
== END 2018-04-04 18:50 | disposition home or self-care (01) | DRG 194 ==
LOC: MED 18:38 → MTU 21:48
PROVIDERS: ADMIT Hospitalist; ATTEND Hospitalist
DX: I11.0 Hypertensive heart disease with heart failure (principal); E41 Nutritional marasmus; Z95.1 Presence of aortocoronary bypass graft; D64.9 Anemia, unspecified; E11.9 Type 2 diabetes mellitus without complications; I48.0 Paroxysmal atrial fibrillation; F17.210 Nicotine dependence, cigarettes, uncomplicated; I25.119 Atherosclerotic heart disease of native coronary artery with unspecified angina pectoris; I50.23 Acute on chronic systolic (congestive) heart failure; H54.62 Unqualified visual loss, left eye, normal vision right eye; K59.00 Constipation, unspecified; M19.90 Unspecified osteoarthritis, unspecified site; Z59.0 Homelessness; Z85.038 Personal history of other malignant neoplasm of large intestine; Z68.20 Body mass index [BMI] 20.0-20.9, adult; E44.1 Mild protein-calorie malnutrition
CPT/HCPCS: 36415; 71045; 80053; 82948; 83036; 83540; 83880; 84443; 84484; 85025; 87081; 93005; 96374; 99285; J1940; J2270; Q0092

== ENCOUNTER 2018-05-18 14:02 | Observation (INO) | payer OTHER ==
[~2018-05-18] VITALS: Ht 162.6 cm; Wt 52.6 kg
[2018-05-18 14:20] VITALS: BP 142/82
--- NOTE | 2018-05-18 14:25 | NUR ---
PT PRESENT TO ED W/ C/O MID STERNAL PAIN RADIATING TO HIS BACK AND ABDOMEN;PT FEELS NAUSEOUS BUT DENIES VOMITING; PT VSTATES FEELS SLIGH SOB; SATTING AT 98 % RA; NO ACCESSORY MUSCLES USED; HX OF CARDIAC DZ (OPEN HEART SURGERY A CHILD), DM, HTN; ALL MONITORS IN PLACED; SAFETY MEASURES INSTITUTED; ER MD NOTIFIED.
--- NOTE | 2018-05-18 14:27 | NUR ---
EKG GIVEN TO DR TOMLINSON
--- NOTE | 2018-05-18 14:39 | NUR ---
PT TO ER BED 12
[2018-05-18] MEDS ORDERED: ASPIRIN 81 MG TAB.CHEW PO ONE (14:55)
[2018-05-18 15:26] LABS: BASOPHILS % (AUTO) 0.4 % (0.0-2.0); EOSINOPHILS # (AUTO) 0.1 K/uL (0-0.4); EOSINOPHILS % (AUTO) 1.8 % (0.0-4.0); HEMATOCRIT 37.6 % (36-52); HEMOGLOBIN 11.9 g/dL (12.0-18.0); LYMPHOCYTES # (AUTO) 1.3 K/uL (2.0-11.5); LYMPHOCYTES % (AUTO) 18.6 % (20.5-51.1); MEAN CORPUSCULAR HEMOGLOBIN 25 pg (27-31); MEAN CORPUSCULAR HGB CONC 32 g/dL (33-37); MEAN CORPUSCULAR VOLUME 77.5 fL (80-94); MONOCYTES # (AUTO) 0.6 K/uL (0.8-1.0); MONOCYTES % (AUTO) 8.2 % (1.7-9.3); NEUTROPHILS # (AUTO) 4.9 K/uL (1.8-7.7); PLATELET COUNT (AUTO) 172 K/uL (140-450); RED BLOOD CELL COUNT(AUTO) 4.86 MIL/uL (4.20-6.10); RED CELL DISTRIBUTION WIDTH 23.1 % (11.6-13.7); WHITE BLOOD COUNT (AUTO) 6.9 K/uL (4.8-10.8)
[2018-05-18 15:39] LABS: CARBON DIOXIDE 30.1 mmol/L (21-32); CREATININE 1.5 mg/dL (0.7-1.3); MAGNESIUM 2.1 mg/dL (1.8-2.4); POTASSIUM 5.1 mmol/L (3.5-5.1)
[2018-05-18 15:45] LABS: ALBUMIN 4.1 g/dL (3.4-5.0)
[2018-05-18 15:59] LABS: PROTHROMBIN TIME 10.3 secs (10.8-13.4)
[2018-05-18 16:02] LABS: BARBITURATE, URINE NEG. ng/ml (NEG <=200); BENZODIAZEPINE, URINE NEG. ng/mL (NEG <=200); CANNABINOID, URINE NEG. ng/mL (NEG <=50); COCAINE, URINE NEG. ng/mL (NEG <=300); OPIATE, URINE NEG. ng/mL (NEG <=2000); PHENCYCLIDINE SCREEN,URINE NEG. ng/mL (NEG <=25)
[2018-05-18 16:04] LABS: APPEARANCE,URINE HAZY (CLEAR); BILIRUBIN,URINE NEGATIVE (NEGATIVE); BLOOD, URINE 1+ (NEGATIVE); COLOR,URINE YELLOW (YELLOW); LEUKOCYTE ESTERASE ,URINE NEGATIVE (NEGATIVE); NITRITE, URINE NEGATIVE (NEGATIVE); PH,URINE 8.5 (5.0-9.0); UGLUCOSE 2+ (NEGATIVE)
[2018-05-18 16:13] LABS: ACETONE, SERUM NEGATIVE (NEGATIVE)
[2018-05-18] MEDS ORDERED: MORPHINE SULFATE 4 MG/ML SYR IM ONE (16:30)
[2018-05-18] MEDS ORDERED: ONDANSETRON 4 MG/2 ML VIAL IVP ONE (16:30)
[2018-05-18 16:33] LABS: RBC,URINE 0-5 (RARE) /HPF (0-5); WBC,URINE NONE SEEN /HPF (0-5)
[2018-05-18] MEDS ORDERED: ZOLPIDEM 5 MG TAB PO PRN (17:20)
[2018-05-18] MEDS ORDERED: LORazepam 2 MG/ML VIAL IVP PRN (17:20)
[2018-05-18] MEDS ORDERED: ONDANSETRON 4 MG/2 ML VIAL IVP PRN (17:20)
[2018-05-18] MEDS ORDERED: ACETAMINOPHEN 325 MG TAB PO PRN (17:20)
[2018-05-18] MEDS ORDERED: ALBUTEROL 0.083% 2.5 MG/3 ML NEBU IH PRN (17:20)
[2018-05-18] MEDS ORDERED: DEXTROSE 50% 50 ML SYR IVP PRN (17:20)
--- NOTE | 2018-05-18 18:40 | NUR ---
RECEIVED REPORT FROM EMERGENCY ROOM NURSE. PT IN STABLE CONDITION. IV PATENT AND INTACT. SAFETY MEASURES IN PLACE. BED IN LOW POSITION. CALL LIGHT AT BEDSIDE. WILL CONTINUE TO MONITOR.
--- NOTE | 2018-05-18 18:45 | NUR ---
Patient will be admitted to care of DR MATIAS. Admited to TELE. Will go to room 105 A. Belongings list completed. Report to SONY NEVILLE.
--- NOTE | 2018-05-18 19:15 | NUR ---
ADMITTED THIS 58 YEAR OLD MALE FORM ER PER YOSEF WITH CC OF CHEST PAIN, ASSESSMENT DONE, VITAL SIGNS STABLE, TOLERABLE CHEST PAIN 3/10, NO SOB NOTED, ON O2 AT 2L/NC, DIMINISHED LUNG SOUNDS, OCCASIONAL DRY COUGH NOTED, BLE EDEMA NOTED, ORIENTED TO ROOM AND CALL LIGHT, DRY SCAB TO LEFT KNEE AND LEFT HAND AND ARM, SAFETY, SAFETY MEASURES IN PLACE, CALL LIGHT WITHIN REACH.
--- NOTE | 2018-05-18 19:20 | NUR ---
GAVE REPORT TO TRAVEL JOURNALIST NURSE FOR CONTINUITY OF CARE. PT IN STABLE CONDITION.
[2018-05-18 19:30] VITALS: BP 137/74
[2018-05-18] MEDS: INSULIN LISPRO SLIDING SCALE 100 UNITS/ML VIAL SUBQ PRN (20:43)
[2018-05-18] MEDS: BLOOD GLUCOSE MONITORING 1 DEV DEV FS SCH (20:43)
[2018-05-18] MEDS: METOPROLOL 25 MG TAB PO SCH (20:45)
[2018-05-18] MEDS: SIMVASTATIN 20 MG TAB PO SCH (20:45)
[2018-05-18] MEDS: MORPHINE SULFATE 2 MG/ML SYR IVP PRN (20:46)
--- NOTE | 2018-05-18 20:50 | NUR ---
AMBULATED TO BR WITH STEADY GAIT, BM WITH WELL FORMED STOOL, MEDICATED PRN FOR CHEST PAIN WITH MORPHINE IVP, MONITORED CLOSELY.
--- NOTE | 2018-05-18 23:50 | NUR ---
PT SLEEPING, EASILY AROUSABLE, VITAL SIGNS STABLE, DENIES PAIN, NO SOB NOTED, CONTINUE TO MONITOR CLOSELY.
[2018-05-18 23:52] LABS: CREATINE KINASE MB 4.4 ng/mL (0-3.6)
[2018-05-19] VITALS: BP 109/54
[2018-05-19] MEDS: MORPHINE SULFATE 2 MG/ML SYR IVP PRN (01:27)
--- NOTE | 2018-05-19 03:30 | NUR ---
PT AWAKE, VITAL SIGNS STABLE, PT TOOK OFF NASAL CANNULA, STATED IM OK, SAT-98%, NO SOB NOTED, PT AMBULATED TO BR WITH STEADY GAIT, VOIDED FREELY, MONITORED CLOSELY.
[2018-05-19 04:00] VITALS: BP 118/64
[2018-05-19] MEDS: INSULIN LISPRO SLIDING SCALE 100 UNITS/ML VIAL SUBQ PRN ×3 (05:53→20:09)
--- NOTE | 2018-05-19 06:00 | NUR ---
BLOOD SUGAR CHECKED WITH 155 RESULT, COVERAGE GIVEN, PT WATCHING TV.
[2018-05-19] MEDS: BLOOD GLUCOSE MONITORING 1 DEV DEV FS SCH ×4 (06:35→20:00)
--- NOTE | 2018-05-19 07:17 | NUR ---
PT AWAKE, NO SIGNS OF DISTRESS, REPORT GIVEN TO RN SITAL FOR CONTINUITY OF CARE.
--- NOTE | 2018-05-19 07:35 | NUR ---
RECEIVED REPORT FROM PM NURSE AT BEDSIDE. PT LYING ON HIS BED, AOX4. AWAKE, ALERT AND ABLE TO COMMUNICATE . PT HAS RT WRIST IV ACCESS 20 G, HEP LOCK. ABLE TO AMBULATE AND WALK. NO SIGN OF DISTRESS NOTED. CALL LIGHT WITHIN PT REACH. INFORMED PT TO USE CALL LIGHT FOR ANY HELP. VERBALIZED UNDERSTANDING. WILL CONTINUE TO MONITOR PT.
--- NOTE | 2018-05-19 07:52 | NUR ---
PATIENT HAS BEEN SCREENED AND CATEGORIZED MODERATE NUTRITION RISK. PATIENT WILL BE SEEN WITHIN 3-5 DAYS OF ADMISSION. 05/21/18[address]
[2018-05-19 07:55] LABS: BASOPHILS # (AUTO) 0.1 K/uL (0.00-0.22); BASOPHILS % (AUTO) 1.1 % (0.0-2.0); EOSINOPHILS # (AUTO) 0.2 K/uL (0-0.4); HEMATOCRIT 32.3 % (36-52); HEMOGLOBIN 10.1 g/dL (12.0-18.0); LYMPHOCYTES # (AUTO) 1.4 K/uL (2.0-11.5); LYMPHOCYTES % (AUTO) 27.2 % (20.5-51.1); MEAN CORPUSCULAR HEMOGLOBIN 24 pg (27-31); MEAN CORPUSCULAR HGB CONC 31 g/dL (33-37); MEAN CORPUSCULAR VOLUME 78.1 fL (80-94); MONOCYTES # (AUTO) 0.5 K/uL (0.8-1.0); MONOCYTES % (AUTO) 9.8 % (1.7-9.3); NEUTROPHILS # (AUTO) 3.1 K/uL (1.8-7.7); NEUTROPHILS % (AUTO) 57.9 % (42.2-75.2); PLATELET COUNT (AUTO) 147 K/uL (140-450); RED BLOOD CELL COUNT(AUTO) 4.14 MIL/uL (4.20-6.10); RED CELL DISTRIBUTION WIDTH 22.5 % (11.6-13.7); WHITE BLOOD COUNT (AUTO) 5.3 K/uL (4.8-10.8)
[2018-05-19 08:00] VITALS: BP 97/52
[2018-05-19 08:14] LABS: ANION GAP 10.1 (8-16); CARBON DIOXIDE 26.8 mmol/L (21-32); CREATININE 1.2 mg/dL (0.7-1.3); MAGNESIUM 1.9 mg/dL (1.8-2.4); POTASSIUM 3.9 mmol/L (3.5-5.1); TOTAL BILIRUBIN 0.7 mg/dL (0.0-1.0)
[2018-05-19 08:29] LABS: CREATINE KINASE MB 3.3 ng/mL (0-3.6)
[2018-05-19] MEDS ORDERED: ASPIRIN 81 MG TAB.CHEW PO SCH (09:00)
[2018-05-19] MEDS: METOPROLOL 25 MG TAB PO SCH ×2 (09:22→20:16)
--- NOTE | 2018-05-19 09:30 | NUR ---
ADMINISTERED MEDS TO PT ORDERED. TOLERATED WELL. NO SIGN OF DISTRESS NOTED. ALL SAFETY MEASURE IN PLACE. ALINA CONTINUE TO MONITOR PT.
[2018-05-19 12:00] VITALS: BP 110/68
--- NOTE | 2018-05-19 12:30 | NUR ---
CHECKED ON PT. SITTING ON HIS BED. WATCHING TV AT THIS TIME. DENIES ANY PAIN . NO SIGN OF DISTRESS NOTED. CALL LIGHT WITHIN PT REACH. INFORMED TO CALL FOR ANY HELP. BLOOD SUGAR AT 185. PT TO GET TWO UNITS OF INSULIN. WILL CONTINUE TO MONITOR PT.
--- NOTE | 2018-05-19 15:15 | NUR ---
PT WITH NURSE OFFICE AT BEDSIDE. ASSISTED METAL BUGGY OPERATOR WITH BUBBLE TEST. PT TOLERATED WELL. NO DISTRESS NOTED. WILL CONTINUE TO MONITOR PT.
[2018-05-19 16:00] VITALS: BP 118/57
--- NOTE | 2018-05-19 18:03 | NUR ---
PT STATES OF HAVING ANXIETY , DIFFICULTY IN SLEEPING. PER PT, UNABLE TO SLEEP SINCE LAST NIGHT. ADMINISTERED ATIVAN ORDERED. PT WENT TO SLEEP. INFORMED PT TO NOT GET UP, CALL FOR HELP. VERBALIZED UNDERSTANDING. WILL CONTINUE TO MONITOR PT.
--- NOTE | 2018-05-19 19:30 | NUR ---
ENDORSED PT TO P NURSE AT BEDSIDE. PT IN STABLE CONDITION.
--- NOTE | 2018-05-19 19:35 | NUR ---
RECEIVED PATIENT ASLEEP COMFORTABLY ON BED. RESPIRATION EVEN AND UNLABORED. FALL PRECAUTION APPLIED. CALL LIGHT WITHIN REACH.
[2018-05-19 20:00] VITALS: BP 119/60
--- NOTE | 2018-05-19 20:00 | NUR ---
V/S TAKEN AND RECORDED WNL.
[2018-05-19] MEDS: SIMVASTATIN 20 MG TAB PO SCH (20:16)
--- NOTE | 2018-05-19 21:00 | NUR ---
SCHEDULE MEDICATION GIVEN TOLERATED WELL. NO S/S OF DISTRESS NOTED.
[2018-05-20] VITALS: BP 103/58
--- NOTE | 2018-05-20 | NUR ---
V/S TAKEN AND RECORDED.
--- NOTE | 2018-05-20 03:00 | NUR ---
SEEN PATIENT ASLEEP BUT EASILY AROUSABLE. NO S/ SOF DISTRESS NOTED. CALL LIGHT WITHIN REACH. ALL NEEDS ATTENDED.
[2018-05-20 04:00] VITALS: BP 142/76
--- NOTE | 2018-05-20 04:30 | NUR ---
AM CARE DONE. V/S TAKEN AND RECORDED. NO S/S OF DISTRESS NOTED.
[2018-05-20] MEDS: BLOOD GLUCOSE MONITORING 1 DEV DEV FS SCH (07:27)
--- NOTE | 2018-05-20 07:30 | NUR ---
ENDORSEMENT GIVEN TO AM SHIFT RN AT BEDSIDE FOR CONTINUITY OF CARE. CALL LIGHT WITHIN REACH. PATIENT IN STABLE CONDITION.
--- NOTE | 2018-05-20 07:30 | NUR ---
RECEIVED PT SITTING AT THE SIDE OF THE BED, [id number]. NO SOB NOTED. NO C/O PAIN AT THIS TIME. IV TO RIGHT WRIST PATENT AND INTACT. CHEST CLEAR. ABDOMEN SOFT, BOWEL SOUNDS PRESENT. NO EDEMA NOTED. INSTRUCTED TO CALL FOR ASSISTANCE, CALL LIGHT WITHIN REACH. PT VERBALIZED UNDERSTANDING.
[2018-05-20 08:00] VITALS: BP 163/85
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
--- NOTE | 2018-05-20 13:40 | NUR ---
CALLED DR. MILLER, OFFICE AND MADE A FOLLOW UP APPOINTMENT FOR May AT 12:30 P.M. [id number] [place] [id number]. PHONE [phone]. I WENT THE THE FLOOR TO GIVE THE PATIENT THE INFORMATION FOR THE FOLLOW UP APPOINTMENT AND THE PATIENT LEFT AMA. I TRIED TO CALL HIM ON THE PHONE NUMBER ON THE FACE SHEET, AND A WOMAN ANSWERED AND SHE SAID HE WASN'T THERE. I CALLED THE DOCTOR'S OFFICE AND GOT A CELL NUMBER, . I LEFT 2 MESSAGES FOR HIM TO CALL ME BACK. Addendum: 05/24/18 at 1042 by Maricruz Molina CM CLAIFICATION. APPOINTMENT IS WednesdayMay AT 12:30P.M.
== END 2018-05-20 08:15 | disposition left against medical advice (07) ==
LOC: MED 14:02 → MTU 17:17
PROVIDERS: ADMIT Hospitalist; ATTEND Hospitalist
DX: I25.119 Atherosclerotic heart disease of native coronary artery with unspecified angina pectoris (principal); E78.5 Hyperlipidemia, unspecified; J44.9 Chronic obstructive pulmonary disease, unspecified; E11.22 Type 2 diabetes mellitus with diabetic chronic kidney disease; I13.0 Hypertensive heart and chronic kidney disease with heart failure and stage 1 through stage 4 chronic kidney disease, or unspecified chronic kidney disease; N18.9 Chronic kidney disease, unspecified; I50.9 Heart failure, unspecified; Q21.0 Ventricular septal defect; F19.90 Other psychoactive substance use, unspecified, uncomplicated; F17.210 Nicotine dependence, cigarettes, uncomplicated; Z95.1 Presence of aortocoronary bypass graft
CPT/HCPCS: 36415; 71045; 80053; 80305; 81001; 82009; 82140; 82550; 82553; 82948; 83735; 83880; 84484; 85025; 85379; 85610; 85730; 87081; 93005; 93307; 94760; 96372; 96374; 96375; 96376; 99284; G0378; G0482; J1644; J1815; J2060; J2270; J2405; J7613; Q0092; 99285

== ENCOUNTER 2018-07-02 17:47 | Inpatient (IN) | payer OTHER ==
[~2018-07-02] VITALS: Ht 162.6 cm; Wt 68.9 kg
[2018-07-02 17:51] VITALS: BP 157/82
--- NOTE | 2018-07-02 17:56 | NUR ---
PT PLACED IN W/C FOR COMFORT. PT REQUESTING OXYGEN, PT ADVISED OXYGEN SATURATION 100% ON ROOM AIR. PT PROVIDED WITH OXYGEN VIA N/C AT 2L/MIN AND PLACED INTO LOBBY TO WAIT FOR AVAILABLE BED.
--- NOTE | 2018-07-02 18:56 | NUR ---
PATIENT TAKEN TO ER BED 4 BY W/C
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
--- NOTE | 2018-07-02 19:15 | NUR ---
RECEIVED REPORT FROM SONY MONROE.
--- NOTE | 2018-07-02 20:21 | NUR ---
PT TAKEN TO XRAY.
--- NOTE | 2018-07-02 20:32 | NUR ---
LAB AT BEDSIDE.
--- NOTE | 2018-07-02 20:35 | NUR ---
EKG IN PROGRESS.
--- NOTE | 2018-07-02 20:36 | NUR ---
PT IS CALM, ALERT, COOPERATIVE. SKIN IS PINK, DRY, WARM. BREATHING EVEN/UNLABORED. NO S/SX RESPIRATORY DISTRESS AT THIS TIME. VSS. HOB ELEVATED. PT POSITIONED FOR COMFORT. SP02: 99% ON RA.
[2018-07-02 20:45] LABS: BASOPHILS % (AUTO) 0.5 % (0.0-2.0); EOSINOPHILS # (AUTO) 0.2 K/uL (0-0.4); EOSINOPHILS % (AUTO) 2.5 % (0.0-4.0); HEMATOCRIT 29.9 % (36-52); HEMOGLOBIN 9.6 g/dL (12.0-18.0); LYMPHOCYTES # (AUTO) 0.9 K/uL (2.0-11.5); LYMPHOCYTES % (AUTO) 14.6 % (20.5-51.1); MEAN CORPUSCULAR HEMOGLOBIN 25 pg (27-31); MEAN CORPUSCULAR HGB CONC 32 g/dL (33-37); MEAN CORPUSCULAR VOLUME 77.4 fL (80-94); MONOCYTES # (AUTO) 0.5 K/uL (0.8-1.0); MONOCYTES % (AUTO) 7.9 % (1.7-9.3); NEUTROPHILS # (AUTO) 4.8 K/uL (1.8-7.7); NEUTROPHILS % (AUTO) 74.5 % (42.2-75.2); PLATELET COUNT (AUTO) 202 K/uL (140-450); RED BLOOD CELL COUNT(AUTO) 3.86 MIL/uL (4.20-6.10); RED CELL DISTRIBUTION WIDTH 20.8 % (11.6-13.7); WHITE BLOOD COUNT (AUTO) 6.4 K/uL (4.8-10.8)
[2018-07-02 20:54] LABS: ANION GAP 14.7 (8-16); CARBON DIOXIDE 22.1 mmol/L (21-32); CREATININE 1.1 mg/dL (0.7-1.3); POTASSIUM 3.8 mmol/L (3.5-5.1)
[2018-07-02 21:08] LABS: ALBUMIN 2.7 g/dL (3.4-5.0); TOTAL BILIRUBIN 0.9 mg/dL (0.0-1.0)
[2018-07-02] MEDS ORDERED: MORPHINE SULFATE 2 MG/ML SYR IVP ONE (22:15)
[2018-07-02] MEDS ORDERED: ASPIRIN 325 MG TAB PO ONE (22:15)
[2018-07-02] MEDS ORDERED: FUROSEMIDE 40 MG/4 ML VIAL IVP ONE (22:15)
[2018-07-02] MEDS ORDERED: METF500T PO (22:24)
[2018-07-02] MEDS ORDERED: DEXTROSE 50% 50 ML SYR IVP PRN (23:20)
[2018-07-02] MEDS ORDERED: LORazepam 2 MG/ML VIAL IVP PRN (23:20)
[2018-07-02] MEDS ORDERED: ONDANSETRON 4 MG/2 ML VIAL IVP PRN (23:20)
[2018-07-02] MEDS ORDERED: MAG SULF 2000 MG/WATER PREMIX 50 ML IV PRN (23:20)
[2018-07-02] MEDS ORDERED: ALBUTEROL 0.083% 2.5 MG/3 ML NEBU INH PRN (23:20)
[2018-07-02] MEDS ORDERED: ACETAMINOPHEN 325 MG TAB PO PRN (23:20)
[2018-07-02] MEDS ORDERED: POTASSIUM CHLORIDE 10 MEQ TABER PO PRN (23:20)
[2018-07-03 00:15] VITALS: BP 130/70
--- NOTE | 2018-07-03 00:15 | NUR ---
RECEIVED BEDSIDE REPORT FROM [facility], PATIENT AMBULATORY TO BED, STEADY GAIT, SKIN INTACT, V/S STABLE, MRSA SCREEN COLLECTED AND SENT TO LAB. IV IN RIGHT THUMB SL. ADMISSION QUESTIONS ASKED, ORIENTATED TO ROOM, CALL LIGHT WITHIN REACH, WILL CONTINUE TO MONITOR.
--- NOTE | 2018-07-03 00:18 | NUR ---
Patient will be admitted to care of Dr. Cuellar. Admited to TELE. Will go to room 105-B. Belongings list completed. Report to SONY Abad.
--- NOTE | 2018-07-03 02:19 | NUR ---
PATIENT RESTING IN BED, CALL LIGHT WITHIN REACH WILL CONTINUE TO MONITOR
[2018-07-03] MEDS ORDERED: INFLUENZA VIRUS VACCINE QUAD 0.5 ML SYR IMVAC PRN (03:05)
[2018-07-03] MEDS ORDERED: PNEUMOCOCCAL VACCINE 23 MCG/0.5 ML VIAL IMVAC PRN (03:05)
[2018-07-03 04:00] VITALS: BP 150/79
[2018-07-03] MEDS: MORPHINE SULFATE 2 MG/ML SYR IVP PRN ×4 (04:03→22:03)
--- NOTE | 2018-07-03 04:03 | NUR ---
PATIENT C/O PAIN MEDICATED WITH MORPHINE
[2018-07-03] MEDS: INSULIN LISPRO SLIDING SCALE 100 UNITS/ML VIAL SUBQ PRN ×3 (06:08→17:02)
--- NOTE | 2018-07-03 06:18 | NUR ---
BG 242 GAVE 4 UNITS
--- NOTE | 2018-07-03 06:27 | NUR ---
PATIENT HAS BEEN SCREENED AND CATEGORIZED MODERATE NUTRITION RISK. PATIENT WILL BE SEEN WITHIN 3-5 DAYS OF ADMISSION. 07/05/18-07/07/18 FATOU CARDOZA MS, RDN
[2018-07-03 06:56] LABS: BASOPHILS % (AUTO) 0.6 % (0.0-2.0); EOSINOPHILS # (AUTO) 0.2 K/uL (0-0.4); EOSINOPHILS % (AUTO) 3.6 % (0.0-4.0); HEMATOCRIT 26.7 % (36-52); HEMOGLOBIN 8.5 g/dL (12.0-18.0); MEAN CORPUSCULAR HEMOGLOBIN 25 pg (27-31); MEAN CORPUSCULAR HGB CONC 32 g/dL (33-37); MEAN CORPUSCULAR VOLUME 77.7 fL (80-94); MONOCYTES # (AUTO) 0.5 K/uL (0.8-1.0); NEUTROPHILS # (AUTO) 3.3 K/uL (1.8-7.7); PLATELET COUNT (AUTO) 176 K/uL (140-450); RED BLOOD CELL COUNT(AUTO) 3.44 MIL/uL (4.20-6.10); RED CELL DISTRIBUTION WIDTH 20.8 % (11.6-13.7)
[2018-07-03 07:25] LABS: ALBUMIN 2.4 g/dL (3.4-5.0); CARBON DIOXIDE 19.6 mmol/L (21-32); CREATININE 1.1 mg/dL (0.7-1.3); MAGNESIUM 1.7 mg/dL (1.8-2.4); POTASSIUM 3.6 mmol/L (3.5-5.1); TOTAL BILIRUBIN 0.7 mg/dL (0.0-1.0)
--- NOTE | 2018-07-03 07:31 | NUR ---
ENDORSED PATIENT TO DAY SHIFT NURSE PATIENT STABLE.
--- NOTE | 2018-07-03 07:35 | NUR ---
RECEIVED PT FROM EMAIL PRODUCTION SPECIALIST NURSE, SUMMER, PT IS AWAKE AND LYING ON THE BED WITH SIDE RAILS UP AND CALL LIGHT WITHIN REACH, PT AMBULATES AND NOT A FALL RISK, PT HAS AN IV LINE ON THE RT THUMB G. 24 ON SALINE LOCK, ON O2 2L NC AND NO SIGN OF DISTRESS NOTED. WILL MONITOR PT.
[2018-07-03 07:59] LABS: LYMPHOCYTES % (AUTO) 19.2 % (20.5-51.1); MONOCYTES % (AUTO) 9.9 % (1.7-9.3); NEUTROPHILS % (AUTO) 66.7 % (42.2-75.2)
[2018-07-03 08:00] VITALS: BP 113/77
--- NOTE | 2018-07-03 08:15 | NUR ---
PT IS AWKE AND STILL FINISHING HIS BREAKFAST, VITAL SIGNS CHECKED AND IS WITHIN NORMAL LIMIT. NO SIGN OF DISTRESS NOTED AND WILL MONITOR PT.
[2018-07-03] MEDS: BLOOD GLUCOSE MONITORING 1 DEV DEV FS SCH ×4 (08:20→20:53)
[2018-07-03] MEDS: ENOXAPARIN 40 MG/0.4 ML SYR SUBQ SCH (08:27)
--- NOTE | 2018-07-03 08:31 | NUR ---
PT IS AWAKE AND SEATED ON THE BED, EATING HIS BREAKFAST. BLOOD GLUCOSE CHECK DONE AND RESULT IS 74,O INSULIN COVERAGE NEEDED, MEDICATION WAS GIVEN TO PT VIA SUBQ ON THE LEFT UA, PT REFUSED TO HAVE THE MEDICATION ADMINISTERED ON HIS STOMACH, PT TOLERATED IT. NO SIGN OF DISTRESS NOTED AND WILL MONITOR PT.
--- NOTE | 2018-07-03 09:45 | NUR ---
DR. LO CALLED AND INFORMED MD OF THE PT'S MG LEVEL OF 1.7, DR. LO MADE A TELEPHONE ORDER TO GIVE MAGNESIUM SULFATE IV 2GMX 1 DOSE, ORDER READ BACK AND VERIFIED AND ACKNOWLEDGED. WILL CARRY OUT MD ORDER.
[2018-07-03 12:00] VITALS: BP 141/74
[2018-07-03] MEDS ORDERED: MAG SULF 2000 MG/WATER PREMIX 50 ML IV SCH (12:30)
--- NOTE | 2018-07-03 13:01 | NUR ---
PT IS AWAKE AND MAGNESIUM SULFATE IVPB WAS STARTED TO PT FOR THE MAGNESIUM LEVEL OF 1.7, INSULIN WAS GIVEN ON THE LEFT UA FOR THE BLOOD GLUCOSE RESULT OF 195, PT TOLERATING IT. NO SIGN OF DISTRESS NOTED AND WILL MONITOR PT.
[2018-07-03 16:00] VITALS: BP 124/66
[2018-07-03 16:00] LABS: ALBUMIN 1.7 g/dL (3.4-5.0); ANION GAP -4.1 (8-16); CARBON DIOXIDE 16.9 mmol/L (21-32); CREATININE 0.6 mg/dL (0.7-1.3); TOTAL BILIRUBIN 0.6 mg/dL (0.0-1.0)
--- NOTE | 2018-07-03 16:07 | NUR ---
BRANDON FROM LAB CALED AND INFORMED THE PT'S CRITICAL VALUE, NA IS 116 AND K LEVEL IS 2.8, WILL INFORM .
[2018-07-03 16:08] LABS: POTASSIUM 2.8 mmol/L (3.5-5.1)
--- NOTE | 2018-07-03 16:15 | NUR ---
PAGED DR. YEPEZ TO INFORM REGARDING THE PT'S K AND NA LEVEL, AWAITING MD CALL BACK.
--- NOTE | 2018-07-03 18:23 | NUR ---
RECEIVED A CALL BACK FROM DR. LO AND INFORMED MD OF THE PT'S NA LEVEL OF 116 AND K LEVEL OF 2.8, DR. LO MADE A TELEPHONE ORDER FOR A STAT CHEM 7 AND MAGNESIUM LEVEL AND TO PLACE PT ON FLUID RESTRICTION OF 2L/DAY, DR. LO WAS INFORMED ALSO OF THE PT'S K LEVEL OF 2.8 AND MD SAID THAT K LEVEL WILL NOT BE DEALT FOR NOW AND FOLLOW UP ON THE RESULT OF THE STAT CHEM 7, ACKNOWLEDGED, ORDER READ BACK AND WILL CARRY OUT MD ORDER.
--- NOTE | 2018-07-03 19:10 | NUR ---
ENDORSED PT TO RN LABOR AND DELIVERY NURSEJOSE FOR CONTINUITY OF CARE. PT IS STABLE AT THIS TIME.
--- NOTE | 2018-07-03 19:11 | NUR ---
Received endorsement from JEFF joseph RN; patient is A/Ox4, able to make needs known and ambulatory. Introduced self, updated board. On O2 2LPM via N/C, no SOB or distress noted. IV site on right thumb, saline locked. Skin intact. Bed in the lowest position, call light within reach. Initial assessment done. Will continue to monitor.
[2018-07-03 20:00] VITALS: BP 146/75
--- NOTE | 2018-07-03 20:00 | NUR ---
Blood glucose check done; 113, no coverage needed.
[2018-07-03 20:08] LABS: ANION GAP 11.7 (8-16); CARBON DIOXIDE 23.4 mmol/L (21-32); CREATININE 1.1 mg/dL (0.7-1.3); POTASSIUM 4.1 mmol/L (3.5-5.1)
--- NOTE | 2018-07-03 20:51 | NUR ---
Pageaugustine Cuellar about BMP levels. Received a callback at 2048, reported BMP results; will continue to monitor. Addendum: 07/03/18 at 2 by Hemant [address] RN Dr. Arias is the on-call Dr. for Dr. Cuellar.
--- NOTE | 2018-07-03 22:00 | NUR ---
Patient complained of abdomen and bilateral knee pain; will medicate as ordered and per pain scale. Will continue to monitor.
[2018-07-04] VITALS: BP 136/80
--- NOTE | 2018-07-04 00:02 | NUR ---
Vitals taken, no distress noted.
--- NOTE | 2018-07-04 02:30 | NUR ---
Rounds made. Patient asleep, visible chest rise and fall noted.
[2018-07-04 04:00] VITALS: BP 156/85
--- NOTE | 2018-07-04 04:10 | NUR ---
Vitals taken, no distress noted.
[2018-07-04] MEDS: MORPHINE SULFATE 2 MG/ML SYR IVP PRN ×4 (06:03→23:33)
[2018-07-04] MEDS: BLOOD GLUCOSE MONITORING 1 DEV DEV FS SCH ×4 (06:30→21:47)
[2018-07-04 06:33] LABS: BASOPHILS % (AUTO) 0.7 % (0.0-2.0); EOSINOPHILS # (AUTO) 0.2 K/uL (0-0.4); EOSINOPHILS % (AUTO) 3.7 % (0.0-4.0); HEMATOCRIT 27.8 % (36-52); HEMOGLOBIN 9.2 g/dL (12.0-18.0); LYMPHOCYTES # (AUTO) 0.9 K/uL (2.0-11.5); LYMPHOCYTES % (AUTO) 18.7 % (20.5-51.1); MEAN CORPUSCULAR HEMOGLOBIN 25 pg (27-31); MEAN CORPUSCULAR HGB CONC 33 g/dL (33-37); MONOCYTES # (AUTO) 0.4 K/uL (0.8-1.0); MONOCYTES % (AUTO) 8.1 % (1.7-9.3); NEUTROPHILS # (AUTO) 3.5 K/uL (1.8-7.7); NEUTROPHILS % (AUTO) 68.8 % (42.2-75.2); PLATELET COUNT (AUTO) 170 K/uL (140-450); RED BLOOD CELL COUNT(AUTO) 3.62 MIL/uL (4.20-6.10); RED CELL DISTRIBUTION WIDTH 20.9 % (11.6-13.7)
--- NOTE | 2018-07-04 07:15 | NUR ---
Endorsed patient to AM shift nurse for continuity of care; patient in stable condition.
--- NOTE | 2018-07-04 07:16 | NUR ---
RECEIVED REPORT FROM METAL DRILL OPERATOR NURSE GAL. PT IN STABLE CONDITION. RESPIRATIONS EVEN AND UNLABORED. IV INTACT AND PATENT. SAFETY MEASURES IN PLACE. CALL LIGHT AT BEDSIDE. BED IN LOW POSITION. WILL CONTINUE TO MONITOR.
--- NOTE | 2018-07-04 07:59 | NUR ---
GAVE REPORT TO DAY SHIFT NURSE SUJEY FOR CONTINUITY OF CARE. PT IN STABLE CONDITION.
[2018-07-04 08:00] VITALS: BP 160/89
--- NOTE | 2018-07-04 08:00 | NUR ---
RECEIVED PT AAOX4. NO SOB NOTED. NO C/O PAIN AT THIS TIME. IV TO RT THUMB PATENT AND INTACT. CHEST, DIMINISHED AIR ENTRY TO THE BASES. ABDOMEN SOFT, BOWEL SOUNDS PRESENT. + 1 PITTING EDEMA ON BLE NOTED, ELEVATED WITH PILLOW WHILE ON BED. INSTRUCTED PT TO CALL FOR ASSISTANCE, CALL LIGHT WITHIN REACH, VERBALIZED UNDERSTANDING.
[2018-07-04] MEDS: ENOXAPARIN 40 MG/0.4 ML SYR SUBQ SCH (09:26)
--- NOTE | 2018-07-04 09:40 | NUR ---
PT RESTING. NO SOB NOTED. NO SIGNS OF PAIN.
[2018-07-04] MEDS ORDERED: FURO-570 PO (10:37)
--- NOTE | 2018-07-04 11:00 | NUR ---
PHYSICAL THERAPY ON GOING AT THE BEDSIDE.
[2018-07-04 12:20] VITALS: BP 165/69
[2018-07-04] MEDS: INSULIN LISPRO SLIDING SCALE 100 UNITS/ML VIAL SUBQ PRN ×2 (12:20→21:49)
--- NOTE | 2018-07-04 12:32 | NUR ---
WAS ASKED BY TUNG FROM [facility] TO ASK THE PATIENT WHERE HIS ZOLL LIFE VEST WAS. I SPOKE WITH THE PATIENT AND HE SAID HE LEFT IT WITH HIS BROTHER, KENNEDY WITT, WHO LIVES IN [place]. THE PATIENT DOESN'T KNOW THE PHONE NUMBER OF ADDRESS I INFORMED TUNG FROM [facility], .
--- NOTE | 2018-07-04 12:37 | NUR ---
I CALLED DR. MILLER'S OFFICE, [phone], AND MADE A FOLLOW UP APPOINTMENT FOR JULY 12 AT 10A.M.. [address]ESS [address] [address] . WAS TOLD THAT THE PATIENT HAS MISSED THE LAST 5 APPOINTMENTS. GAVE THE INFORMATION FOR THE APPOINTMENT TO THE PATIENT.
--- NOTE | 2018-07-04 15:47 | NUR ---
ORDER FOR SNF FOR P.T. CALLED TUNG FROM [facility] AND FAXED FACE SHEET, ORDER, H&P AND P.T. NOTES TO HER AT [phone].
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
[2018-07-04 16:00] VITALS: BP 156/79
--- NOTE | 2018-07-04 18:00 | NUR ---
PAGED DR. YEPEZ FOR 2X REGARDING PT'S PLACEMENT. DR. BERGERON SENIOR ACCOUNTANT FOR DR. YEPEZ CALLED BACK AND NOTIFIED THAT NO SNF AVAILABLE YET FOR PT.
--- NOTE | 2018-07-04 19:15 | NUR ---
PT RESTING. NO SOB NOTED. NO SIGNS OF PAIN. ENDORSED TO NEXT SHIFT NURSE FOR CONTINUITY OF CARE.
--- NOTE | 2018-07-04 19:16 | NUR ---
Received endorsement from JEFF joseph RN; patient is A/Ox4, able to make needs known and ambulatory. Introduced self, updated board. No SOB or distress noted, on room air. IV site on right thumb, saline locked. Skin intact. Bed in the lowest position, call light within reach. Initial assessment done. Will continue to monitor.
[2018-07-04 20:00] VITALS: BP 147/78
--- NOTE | 2018-07-04 20:45 | NUR ---
Checks made, no distress noted.
--- NOTE | 2018-07-04 23:30 | NUR ---
Vitals taken, patient complained of 6/10 abdominal pain and bilateral knee pain. Will medicate as ordered and per pain scale. Will continue to monitor.
[2018-07-05] VITALS: BP 139/77
--- NOTE | 2018-07-05 01:39 | NUR ---
Checks made. Patient asleep, visible chest rise and fall noted.
[2018-07-05 04:00] VITALS: BP 149/79
--- NOTE | 2018-07-05 04:00 | NUR ---
Vitals taken, no distress noted. Patient asleep, visible chest rise and fall noted.
[2018-07-05] MEDS: BLOOD GLUCOSE MONITORING 1 DEV DEV FS SCH ×2 (07:02→12:18)
--- NOTE | 2018-07-05 07:10 | NUR ---
Endorsed patient to AM shift RN for continuity of care; patient in stable condition.
--- NOTE | 2018-07-05 07:30 | NUR ---
RECEIVED PT AAOX4. NO SOB NOTED. NO C/O PAIN AT THIS TIME. IV TO RT THUMB PATENT AND INTACT. CHEST, DIMINISHED AIR ENTRY TO THE BASES. ABDOMEN SOFT, BOWEL SOUNDS PRESENT. + 1 PITTING EDEMA ON BLE NOTED, INSTRUCTED TO ELEVATE BLE WITH PILLOW WHILE ON BED. INSTRUCTED PT TO CALL FOR ASSISTANCE, CALL LIGHT WITHIN REACH, VERBALIZED UNDERSTANDING.
[2018-07-05 07:49] VITALS: BP 152/79
[2018-07-05] MEDS: ENOXAPARIN 40 MG/0.4 ML SYR SUBQ SCH (09:37)
--- NOTE | 2018-07-05 09:49 | NUR ---
Quality Assurance Group Leader Note: longterm facility placement follow up: Per Zainab from [facility] , they don't have a male bed available at this time. Pending response from Josi at [facility] Pending response from Antonino at [facility] Pending response from Daphne at [facility]
--- NOTE | 2018-07-05 10:31 | NUR ---
Bonding Agent Note: senior living facility placement follow up: Per Stacie at [facility] , patient has been accepted and can go to room 35A today at their facility, accepting physician is Dr. Garcia, Java Android Developer Maricruz made aware and will arrange transportation. Per Antonino at [facility] , no male beds available at this time.
--- NOTE | 2018-07-05 11:13 | NUR ---
PATIENT WILL BE GOING TO SNF, [facility]. CALLED ANTOINETTE AT DR. MILLER'S OFFICE AND CANCELED HIS APPOINTMENT FOR NEXT JULY 12.
--- NOTE | 2018-07-05 11:17 | NUR ---
RECEIVED A CALL FROM TUNG FROM [facility]. THE AUTH FOR [employer]LL[employer] IS [id number]. CALLED [facility] AND SET UP WHEELCHAIR TRANSPORT FOR 1 P.M. SUJEY CARDOZA AWARE. AUTH TRANSPORT, [id number].
[2018-07-05 11:52] VITALS: BP 131/73
--- NOTE | 2018-07-05 12:00 | NUR ---
REPORT GIVEN TO MAURICIO AT [facility]. PT STATED HE WILL BE THE ONE TO INFORM HIS FAMILY WHEN HE GET TO THE SNF.
[2018-07-05] MEDS: INSULIN LISPRO SLIDING SCALE 100 UNITS/ML VIAL SUBQ PRN (12:19)
--- NOTE | 2018-07-05 12:30 | NUR ---
PT CONSUMED ALMOST 100% OF FOOD SERVED DURING BREAKFAST AND LUNCH, TOLERATED WELL.
--- NOTE | 2018-07-05 13:00 | NUR ---
DISCHARGE INSTRUCTIONS GIVEN TO PT WHICH VERBALIZED FULL UNDERSTANDING OF THE TEACHINGS AND THE REASON WHY PT IS GOING TO SNF. ARM BANDS AND IV REMOVED, CANNULA TIP INTACT.
--- NOTE | 2018-07-05 13:30 | NUR ---
PT WHEELED OUT TO THE PARKING AREA BY [facility] VIA WHEELCHAIR IN STABLE CONDITION. AAOX4. NO SOB NOTED. NO C/O PAIN AT THIS TIME.
[2018-07-06] MEDS ORDERED: FUROSEMIDE 40 MG TAB PO SCH (09:00)
== END 2018-07-05 13:30 | DRG 194 ==
LOC: MED 17:47 → MTU 23:21 → OBSVTOIN 07-03 06:59
PROVIDERS: ADMIT Internal Medicine Pulmonary Disease; ATTEND Internal Medicine Pulmonary Disease
DX: I11.0 Hypertensive heart disease with heart failure (principal); E44.0 Moderate protein-calorie malnutrition; R18.8 Other ascites; K74.60 Unspecified cirrhosis of liver; E11.9 Type 2 diabetes mellitus without complications; I50.21 Acute systolic (congestive) heart failure; M19.90 Unspecified osteoarthritis, unspecified site; Z79.899 Other long term (current) drug therapy; Z59.0 Homelessness; Z91.19 Patient's noncompliance with other medical treatment and regimen; Z68.26 Body mass index [BMI] 26.0-26.9, adult
CPT/HCPCS: 96374; 96375; 99285; G0378; 36415; 71046; 80048; 80053; 82948; 83735; 83880; 84484; 85025; 87081; 90732; 93005; 97110; 97116; 97161-GP; 97530; J1650; J1815; J1940; J2270; J3475

== ENCOUNTER 2018-08-16 20:34 | Emergency (ER) | payer OTHER ==
[~2018-08-16] VITALS: Ht 162.6 cm; Wt 54.9 kg
[~2018-08-16 20:34] MED LIST: FURO-570 PO; METF500T PO
[2018-08-16 20:43] VITALS: BP 147/96
[2018-08-16] MEDS ORDERED: KETOROLAC 30 MG/ML VIAL IVP ONE (20:50)
[2018-08-16] MEDS ORDERED: NACL 0.9% 1,000 ML IV ONE (20:50)
[2018-08-16] MEDS ORDERED: ONDANSETRON 4 MG/2 ML VIAL IVP ONE (20:50)
--- NOTE | 2018-08-16 20:50 | NUR ---
PT AMBULATED TO BED #8
[2018-08-16 21:31] LABS: BASOPHILS % (AUTO) 0.6 % (0.0-2.0); EOSINOPHILS # (AUTO) 0.1 K/uL (0-0.4); EOSINOPHILS % (AUTO) 1.2 % (0.0-4.0); HEMATOCRIT 36.8 % (36-52); HEMOGLOBIN 11.9 g/dL (12.0-18.0); LYMPHOCYTES # (AUTO) 1.5 K/uL (2.0-11.5); LYMPHOCYTES % (AUTO) 22.7 % (20.5-51.1); MEAN CORPUSCULAR HEMOGLOBIN 25 pg (27-31); MEAN CORPUSCULAR HGB CONC 32 g/dL (33-37); MEAN CORPUSCULAR VOLUME 77.4 fL (80-94); MONOCYTES # (AUTO) 0.5 K/uL (0.8-1.0); MONOCYTES % (AUTO) 7.5 % (1.7-9.3); NEUTROPHILS # (AUTO) 4.4 K/uL (1.8-7.7); PLATELET COUNT (AUTO) 224 K/uL (140-450); RED BLOOD CELL COUNT(AUTO) 4.75 MIL/uL (4.20-6.10); RED CELL DISTRIBUTION WIDTH 21.2 % (11.6-13.7); WHITE BLOOD COUNT (AUTO) 6.4 K/uL (4.8-10.8)
--- NOTE | 2018-08-16 21:43 | NUR ---
X-Ray at bedside.
[2018-08-16 21:46] LABS: ANION GAP 14.1 (8-16); CARBON DIOXIDE 22.2 mmol/L (21-32); CREATININE 1.4 mg/dL (0.7-1.3); POTASSIUM 4.3 mmol/L (3.5-5.1)
[2018-08-16 21:52] LABS: ALBUMIN 2.9 g/dL (3.4-5.0); TOTAL BILIRUBIN 0.9 mg/dL (0.0-1.0)
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
--- NOTE | 2018-08-16 22:51 | NUR ---
DR. ESTRADA AT BEDSIDE FOR EVALUATION.
[2018-08-16] MEDS ORDERED: MORPHINE SULFATE 4 MG/ML SYR IVP ONE (23:00)
--- NOTE | 2018-08-17 01:00 | NUR ---
Patient discharged with v/s stable. Patient states he feel better and is ready to go home, patient states he is going to go stay at his brothers house. Patient provided with homeless packet, meal bag, and bus pass. Written and verbal after care instructions given and explained. Patient alert, oriented and verbalized understanding of instructions. Ambulatory with steady gait. All questions addressed prior to discharge. ID band removed. Patient advised to follow up with PMD. Rx of [place], and Motrin given. Patient educated on indication of medication including possible reaction and side effects. Opportunity to ask questions provided and answered.
[2018-08-17 01:05] VITALS: BP 117/64
== END 2018-08-17 01:00 | disposition home or self-care (01) ==
LOC: MED 20:34
DX: R07.9 Chest pain, unspecified (principal); M79.604 Pain in right leg; M79.605 Pain in left leg; M54.5 Low back pain; E11.9 Type 2 diabetes mellitus without complications; I10 Essential (primary) hypertension; Z79.84 Long term (current) use of oral hypoglycemic drugs; Z79.899 Other long term (current) drug therapy; F17.200 Nicotine dependence, unspecified, uncomplicated
CPT/HCPCS: 36415; 71045; 80053; 83690; 84484; 85025; 96374; 96375; 99284; J1885; J2270; J2405; J7030; Q0092; 93005

== ENCOUNTER 2018-09-01 22:21 | Inpatient (IN) | payer OTHER ==
[~2018-09-01] VITALS: Ht 162.6 cm; Wt 54.4 kg
--- NOTE | 2018-09-01 00:58 | NUR ---
PT ARRIVED FROM ER VIA ATILIORSHANELLE. AAOX4. NO C/O PAIN AT THIS TIME. NO RESP DISTRESS NOTED. IV TO RIGHT EJ #18G. SKIN INTACT. SCAB TO LEFT KNEE. ORIENTED PT TO ROOM. DISCUSSED PLAN OF CARE. PT VERBALIZED UNDERSTANDING. SAFETY PRECAUTION IN PLACE. CALL LIGHT WITHIN REACH. Addendum: 09/02/18 at 0310 by Martin Hopper RN WRONG TIME
[2018-09-01 22:23] VITALS: BP 128/79
--- NOTE | 2018-09-01 22:28 | NUR ---
TO LOBBY A/W BED, EKG DONE , NSR ERMD NOTED
--- NOTE | 2018-09-01 22:38 | NUR ---
PT AMBULATED TO BED 08
[2018-09-01 22:54] LABS: BASOPHILS # (AUTO) 0.1 K/uL (0.00-0.22); BASOPHILS % (AUTO) 0.7 % (0.0-2.0); EOSINOPHILS # (AUTO) 0.1 K/uL (0-0.4); EOSINOPHILS % (AUTO) 1.4 % (0.0-4.0); HEMATOCRIT 35.9 % (36-52); HEMOGLOBIN 11.5 g/dL (12.0-18.0); LYMPHOCYTES # (AUTO) 1.2 K/uL (2.0-11.5); LYMPHOCYTES % (AUTO) 15.6 % (20.5-51.1); MEAN CORPUSCULAR HEMOGLOBIN 25 pg (27-31); MEAN CORPUSCULAR HGB CONC 32 g/dL (33-37); MEAN CORPUSCULAR VOLUME 78.8 fL (80-94); MONOCYTES # (AUTO) 0.5 K/uL (0.8-1.0); MONOCYTES % (AUTO) 6.3 % (1.7-9.3); NEUTROPHILS # (AUTO) 5.6 K/uL (1.8-7.7); PLATELET COUNT (AUTO) 197 K/uL (140-450); RED BLOOD CELL COUNT(AUTO) 4.56 MIL/uL (4.20-6.10); WHITE BLOOD COUNT (AUTO) 7.4 K/uL (4.8-10.8)
[2018-09-01] MEDS ORDERED: NITROGLYCERIN 0.4 MG TAB SL ONE (23:00)
[2018-09-01] MEDS ORDERED: ASPIRIN 81 MG TAB.CHEW PO ONE (23:00)
[2018-09-01] MEDS ORDERED: MORPHINE SULFATE 4 MG/ML SYR IVP ONE (23:00)
[2018-09-01 23:04] LABS: ANION GAP 15.9 (8-16); CARBON DIOXIDE 21.8 mmol/L (21-32); CREATININE 1.4 mg/dL (0.7-1.3); POTASSIUM 4.7 mmol/L (3.5-5.1)
[2018-09-01 23:10] LABS: TOTAL BILIRUBIN 0.6 mg/dL (0.0-1.0)
[2018-09-01] MEDS ORDERED: NACL 0.9% 1,000 ML IV ONE (23:10)
--- NOTE | 2018-09-01 23:13 | NUR ---
PATIENT PRESENTS TO ED WITH C/O CP, R CHEST WALL X 1 DAY RADIATING TO L ARM . PT STATES CP STARTED UNPROVOKED AT REST .PATIENT DENIES N/V/D; SKIN IS PINK/WARM/DRY; AAOX4 WITH EVEN AND STEADY GAIT; LUNGS CLEAR BL; HR EVEN AND REGULAR; PT DENIES ANY FEVER, SOB, OR COUGH AT THIS TIME; PATIENT STATES PAIN OF 8/10 AT THIS TIME; VSS; PATIENT POSITIONED FOR COMFORT; HOB ELEVATED; BEDRAILS UP X2; BED DOWN. ER MD MADE AWARE OF PT STATUS.
--- NOTE | 2018-09-01 23:14 | NUR ---
SPOKE TO [facility] TO HOLD NITROSTAT AND MORPHINE, PATIENT BP 108/68.
[2018-09-01] MEDS ORDERED: POTASSIUM CHLORIDE 40 MEQ, LIDOCAINE 1% 25 MG in NACL 0.9% 250 ML IV PRN (23:35)
[2018-09-01] MEDS ORDERED: cloNIDine 0.1 MG TAB PO PRN (23:35)
[2018-09-01] MEDS ORDERED: HYDROcodone/APAP 5/325 MG 1 TAB TAB PO PRN ×2 (23:35)
[2018-09-01] MEDS ORDERED: NITROGLYCERIN 0.4 MG TAB SL SCH (23:35)
[2018-09-01] MEDS ORDERED: ACETAMINOPHEN 650 MG SUPP RC PRN (23:35)
[2018-09-01] MEDS ORDERED: MAGNESIUM OXIDE 400 MG TAB PO PRN (23:35)
[2018-09-01] MEDS ORDERED: ONDANSETRON 4 MG/2 ML VIAL IVP PRN (23:35)
[2018-09-01] MEDS ORDERED: IPRATROPIUM 0.02% 0.5 MG/2.5 ML NEBU INH PRN (23:35)
[2018-09-01] MEDS ORDERED: SODIUM PHOSPHATE 118 ML ENEM RC PRN (23:35)
[2018-09-01] MEDS ORDERED: MAG SULF 2000 MG/WATER PREMIX 50 ML IV PRN (23:35)
[2018-09-01] MEDS ORDERED: diphenhydrAMINE 50 MG/ML VIAL IVP PRN (23:35)
[2018-09-01] MEDS ORDERED: ALUMINUM HYD/MAG/SIMETHICONE 30 ML UDC PO PRN (23:35)
[2018-09-01] MEDS ORDERED: guaiFENesin DM 200/20 MG-10 ML 10 ML UDC PO PRN (23:35)
[2018-09-01] MEDS ORDERED: ACETAMINOPHEN 325 MG TAB PO PRN (23:35)
[2018-09-01] MEDS ORDERED: DEXTROSE 50% 50 ML SYR IVP PRN (23:35)
[2018-09-01] MEDS ORDERED: ALBUTEROL 0.083% 2.5 MG/3 ML NEBU INH PRN (23:35)
[2018-09-01] MEDS ORDERED: DOCUSATE SODIUM 250 MG GELCAP PO PRN (23:35)
[2018-09-01] MEDS ORDERED: BISACODYL 10 MG SUPP RC PRN (23:35)
[2018-09-01] MEDS ORDERED: ZOLPIDEM 5 MG TAB PO PRN (23:35)
[2018-09-01] MEDS ORDERED: LORazepam 2 MG/ML VIAL IVP PRN (23:35)
[2018-09-01] MEDS ORDERED: POTASSIUM CHLORIDE 10 MEQ TABER PO PRN (23:35)
--- NOTE | 2018-09-01 23:58 | NUR ---
PT ARRIVED FROM ER VIA GURSHANELLE. AAOX4. NO C/O PAIN AT THIS TIME. NO RESP DISTRESS NOTED. IV TO RIGHT EJ #18G. SKIN INTACT. SCAB TO LEFT KNEE. ORIENTED PT TO ROOM. DISCUSSED PLAN OF CARE. PT VERBALIZED UNDERSTANDING. SAFETY PRECAUTION IN PLACE. CALL LIGHT WITHIN REACH.
--- NOTE | 2018-09-01 23:58 | NUR ---
Patient will be admitted to care of DR LAO. Admited to TELE. Will go to room 120A. Belongings list completed. Report to GRETA.
[2018-09-02] VITALS: BP 118/70
[2018-09-02] MEDS: MORPHINE SULFATE 2 MG/ML SYR IVP PRN ×3 (00:33→18:29)
--- NOTE | 2018-09-02 00:33 | NUR ---
PT C/O CHEST PAIN 10/29. MORPHINE 2 MG IVP GIVEN. PT TOLERATED WELL.
--- NOTE | 2018-09-02 01:00 | NUR ---
PT ASKED FOR SNACK. SNACK PROVIDED. ALL NEEDS ATTENDED AT THIS TIME. CALL LIGHT WITHIN REACH.
--- NOTE | 2018-09-02 03:30 | NUR ---
PT SLEEPING, EASILY AROUSABLE. RESP EVEN AND UNLABORED. NO S/S OF PAIN OR DISCOMFORT.
[2018-09-02 04:00] VITALS: BP 122/76
--- NOTE | 2018-09-02 05:00 | NUR ---
PT SLEEPING. NO S/S OF RESP DISTRESS. NO S/S OF PAIN. SAFETY PRECAUTION IN PLACE. CALL LIGHT WITHIN REACH.
[2018-09-02] MEDS: BLOOD GLUCOSE MONITORING 1 DEV DEV FS SCH ×4 (06:31→20:37)
[2018-09-02] MEDS: INSULIN LISPRO SLIDING SCALE 100 UNITS/ML VIAL SUBQ PRN ×2 (06:33→12:07)
--- NOTE | 2018-09-02 06:40 | NUR ---
PT'S BLOOD SUGAR 316. HUMALOG 8 UNITS GIVEN SUBQ.
--- NOTE | 2018-09-02 07:30 | NUR ---
ENDORSED PT TO DAY SHIFT NURSE. PT IN STABLE CONDITION.
--- NOTE | 2018-09-02 07:35 | NUR ---
RECEIVED REPORT FROM CUSTOMER ENGAGEMENT REPRESENTATIVE NURSE. PT LYING COMFORTABLY IN BED. AROUSABLE TO NAME, AOX4. LUNG SOUNDS CLEAR THROUGHOUT UPON AUSCULTATION. STOMACH FLAT, SOFT AND NON-DISTENDED. RT EXTERNAL JUGULAR IV IN PLACE. IV DRESSING INTACT, CLEAN AND DRY. NO C/O PAIN AT THIS TIME. NO EDEMA NOTED ON EXTREMITIES. SKIN COLOR IS APPROPRIATE TO ETHNICITY, WARM TO TOUCH. LT KNEE SCAB, LEFT OPEN TO AIR. DISCUSSED PLAN OF CARE WITH PT. PT VERBALIZED UNDERSTANDING. PT ON FALL PRECAUTIONS. SAFETY MEASURES IN PLACE, BED ON LOW POSITION, YELLOW SIGN, ARMBAND, AND GOWN NOTED. CALL LIGHT WITHIN REACH.
[2018-09-02 08:00] VITALS: BP 116/77
--- NOTE | 2018-09-02 08:03 | NUR ---
PATIENT HAS BEEN SCREENED AND CATEGORIZED MODERATE NUTRITION RISK. PATIENT WILL BE SEEN WITHIN 3-5 DAYS OF ADMISSION. 09/04/18CRUZ [address]
[2018-09-02] MEDS: metFORMIN 500 MG TAB PO SCH ×3 (08:42→17:40)
[2018-09-02] MEDS: ASPIRIN 81 MG TAB.CHEW PO SCH (08:42)
[2018-09-02] MEDS: ENOXAPARIN 40 MG/0.4 ML SYR SUBQ SCH (08:53)
--- NOTE | 2018-09-02 09:00 | NUR ---
GIVEN AND EXPLAINED RESOURCE PACKETS TO PATIENT. PT VERBALIZED UNDERSTANDING. ADMINISTERED MORNING MEDICATIONS AND PRN PAIN MEDICATION. WILL CONTINUE TO MONITOR.
--- NOTE | 2018-09-02 09:38 | NUR ---
DR. HERNANDEZ AT BEDSIDE. PHYSICIAN STATED THAT PT WILL NEED CARDIOLOGY CONSULT. PT ASLEEP, LYING IN BED. NO DISTRESS NOTED AT THIS TIME. RESPIRATIONS EVEN AND UNLABORED ON RA.
--- NOTE | 2018-09-02 10:26 | NUR ---
PER CRZU HAIDER, DIET RECOMMENDED TO BE CCHO AND CARDIAC. DR. HERNANDEZ NOTIFIED. ORDER NOTED AND CARRIED OUT.
--- NOTE | 2018-09-02 10:42 | NUR ---
PT ASSISTED TO SIT UP ON BED. PROVIDED WITH URINAL. ELIMINATED 1,120ML OR URINE. NO S/S OF DISTRESS AT THIS TIME.
[2018-09-02 11:29] LABS: BILIRUBIN,URINE NEGATIVE (NEGATIVE); BLOOD, URINE TRACE-L (NEGATIVE); COLOR,URINE YELLOW (YELLOW); LEUKOCYTE ESTERASE ,URINE NEGATIVE (NEGATIVE); NITRITE, URINE NEGATIVE (NEGATIVE); PH,URINE 5.5 (5.0-9.0); UGLUCOSE 1+ (NEGATIVE)
[2018-09-02 12:00] VITALS: BP 115/71
[2018-09-02 12:06] LABS: APPEARANCE,URINE CLEAR (CLEAR)
[2018-09-02 12:09] LABS: RBC,URINE 0-5 /HPF (0-5); WBC,URINE 0-5 /HPF (0-5)
[2018-09-02 12:20] LABS: BARBITURATE, URINE NEG. ng/ml (NEG <=200); BENZODIAZEPINE, URINE NEG. ng/mL (NEG <=200); CANNABINOID, URINE NEG. ng/mL (NEG <=50); COCAINE, URINE NEG. ng/mL (NEG <=300); OPIATE, URINE NEG. ng/mL (NEG <=2000); PHENCYCLIDINE SCREEN,URINE NEG. ng/mL (NEG <=25)
[2018-09-02] MEDS ORDERED: FUROSEMIDE 20 MG/2 ML VIAL IVP SCH (14:00)
--- NOTE | 2018-09-02 14:33 | NUR ---
PT AAOX4, LYING IN BED. SAFETY MEASURES IN PLACE, BED ON LOW POSITION WITH X2 SIDE RAILS. GIVEN MEDICATIONS PER ORDER. NO SIGNS OF DISTRESS AT THIS TIME. NO C/O PAIN. PERSONAL BELONGINGS AND CALL LIGHT WITHIN REACH. WILL CONTINUE TO MONITOR.
[2018-09-02 16:00] VITALS: BP 112/74
--- NOTE | 2018-09-02 16:18 | NUR ---
Per echocardiogram jaspreet Fraser pt with recent echo done on 05/2018. Dr. Baer notified & ordered to dc echo. Order noted & carried out.
--- NOTE | 2018-09-02 16:25 | NUR ---
PT ASLEEP IN BED, AROUSABLE TO VOICE. VSS AT THIS TIME. NO C/O PAIN. WILL CONTINUE TO MONITOR.
--- NOTE | 2018-09-02 17:47 | NUR ---
PT GIVEN MEDICATIONS PER ORDER. PT ASSISTED TO A SITTING POSITION TO VOID IN URINAL. ELIMINATED 750ML OF URINE, CHARACTERISTICS YELLOW AND CLEAR WITH NO ODOR. WILL CONTINUE TO MONITOR.
--- NOTE | 2018-09-02 18:35 | NUR ---
PT C/O SHARP LEFT UPPER CHEST PAIN. VS OBTAINED B/P 118/60, HR 120, O2 SAT 97% ON RA, RR 20. GIVEN MORPHINE PER ORDER. INSTRUCTED PT TO TAKE DEEP BREATHS AND PROVIDED DISTRACTION TECHNIQUES. WILL CONTINUE TO MONITOR. Addendum: 09/02/18 at 1844 by Sera Worthington RN ADDENDUM: PT SINUS TACHYCARDIA ON TELE.
--- NOTE | 2018-09-02 19:00 | NUR ---
RECEIVED BEDSIDE REPORT FROM DAY SHIFT NURSE. PATIENT IS AWAKE, ALERT, AND COOPERATIVE. RESPIRATION EVEN UNLABORED ON ROOM AIR. NO DISTRESS NOTED. SKIN IS WARM AND DRY. RIJ IV PATENT AND INTACT. PLAN OF CARE WAS DISCUSSED. ALL SAFETY MEASURES IN PLACE. BED IS AT LOW POSITION. CALL LIGHT WITHIN REACH AND VERBALIZES ITS USE. WILL CONTINUE TO MONITOR.
--- NOTE | 2018-09-02 19:11 | NUR ---
REPORT GIVEN TO PAPER PATTERN FOLDER NURSE FOR CONTINUITY OF CARE. PT VERBALIZED THAT HE IS "FEELING BETTER". NO SIGNS OF DISTRESS AT THIS TIME.
[2018-09-02 20:00] VITALS: BP 101/65
--- NOTE | 2018-09-02 20:00 | NUR ---
INITIAL ASSESSMENT DONE. VITALS WERE TAKEN. PATIENT CONDITION STABLE. NO DISTRESS NOTED. WILL CONTINUE TO MONITOR.
--- NOTE | 2018-09-02 21:00 | NUR ---
CHECKED PATIENT BLOOD GLUCOSE. PATIENT BLOOD GLUCOSE 147. WILL CONTINUE TO MONITOR.
--- NOTE | 2018-09-02 23:00 | NUR ---
PATIENT SLEEPING RESPIRATION EVEN UNLABORED ON ROOM AIR. NO DISTRESS NOTED. WILL CONTINUE TO MONITOR
[2018-09-03] VITALS: BP 102/66
--- NOTE | 2018-09-03 | NUR ---
VITALS WERE TAKEN. PATIENT CONDITION STABLE. NO DISTRESS NOTED. WILL CONTINUE TO MONITOR.
--- NOTE | 2018-09-03 02:00 | NUR ---
CHECKED PATIENT. PATIENT SLEEPING RESPIRATION EVEN UNLABORED ON ROOM AIR. NO DISTRESS NOTED. WILL CONTINUE TO MONITOR.
[2018-09-03 04:00] VITALS: BP 115/78
[2018-09-03] MEDS: MORPHINE SULFATE 2 MG/ML SYR IVP PRN ×5 (04:04→22:45)
--- NOTE | 2018-09-03 04:04 | NUR ---
PATIENT WOKE UP AND COMPLAINED OF CHEST PAIN 10/29. CHECKED PATIENT VITALS BP 115/78 HR 111 RR 16 SPO2 99% ON ROOM AIR. NO DISTRESS NOTED. WILL CONTINUE TO MONITOR.
--- NOTE | 2018-09-03 05:30 | NUR ---
LABS DRAWN AND SENT TO LAB.
[2018-09-03] MEDS: BLOOD GLUCOSE MONITORING 1 DEV DEV FS SCH ×4 (06:14→20:55)
[2018-09-03 06:19] LABS: BASOPHILS % (AUTO) 0.7 % (0.0-2.0); EOSINOPHILS # (AUTO) 0.1 K/uL (0-0.4); EOSINOPHILS % (AUTO) 2.3 % (0.0-4.0); HEMATOCRIT 31.5 % (36-52); HEMOGLOBIN 10.2 g/dL (12.0-18.0); LYMPHOCYTES # (AUTO) 1.1 K/uL (2.0-11.5); LYMPHOCYTES % (AUTO) 22.8 % (20.5-51.1); MEAN CORPUSCULAR HEMOGLOBIN 25 pg (27-31); MEAN CORPUSCULAR HGB CONC 32 g/dL (33-37); MEAN CORPUSCULAR VOLUME 78.2 fL (80-94); MONOCYTES # (AUTO) 0.4 K/uL (0.8-1.0); MONOCYTES % (AUTO) 7.4 % (1.7-9.3); NEUTROPHILS # (AUTO) 3.3 K/uL (1.8-7.7); NEUTROPHILS % (AUTO) 66.8 % (42.2-75.2); PLATELET COUNT (AUTO) 165 K/uL (140-450); RED BLOOD CELL COUNT(AUTO) 4.03 MIL/uL (4.20-6.10); RED CELL DISTRIBUTION WIDTH 20.1 % (11.6-13.7)
[2018-09-03 06:37] LABS: ANION GAP 11.7 (8-16); CARBON DIOXIDE 24.3 mmol/L (21-32); CREATININE 1.2 mg/dL (0.7-1.3)
--- NOTE | 2018-09-03 07:22 | NUR ---
ENDORSED PATIENT TO DAY SHIFT NURSE FOR CONTINUITY OF CARE. PATIENT CONDITION IS STABLE.
--- NOTE | 2018-09-03 07:24 | NUR ---
RECEIVED BEDSIDE REPORT FROM [employer] CONSULTANT NURSE FOR CONTINUITY OF CARE. PATIENT IS AWAKE AND SITTING UP ON BED AT THIS TIME. PATIENT IS AAOX4. DENIES PAIN AND SOB. RESPIRATION EVEN AND UNLABORED ON RA. NO SIGNS OF DISTRESS NOTED. RIJ IN PLACE, INTACT AND CLEAN ,SL PER MD ORDER. SKIN INTACT ANDCLEAN. PATIENT IS ABLE TO AMBULATE WITH ASSIST. DISCUSSED PLAN OF CARE WITH PATIENT AND PATIENT VERBALIZED UNDERSTAND. TELE MONITOR ATTACHED. BED ALARM ACTIVATED. BED IN LOW POSITION AND CALL LIGHT WITHIN REACH. INSTRUCTED PATIENT TO USE THE CALL LIGHT FOR ANY ASSISTANCE AND HE VERBALIZED OK.
--- NOTE | 2018-09-03 07:45 | NUR ---
PATIENT REQUESTED FOR A COLD MILK AND CEREAL. PAGED FNS AND PER FNS STAFF, SHE WILL BRING THEM TO PATIENT'S ROOM SHORTLY. INFORMED PATIENT THAT [facility] WILL BRING THEM SHORTLY, AND PATIENT WAS AWARE.
[2018-09-03 08:00] VITALS: BP 111/73
[2018-09-03] MEDS: metFORMIN 500 MG TAB PO SCH ×3 (08:33→17:03)
[2018-09-03] MEDS: ASPIRIN 81 MG TAB.CHEW PO SCH (08:33)
[2018-09-03] MEDS: FUROSEMIDE 20 MG/2 ML VIAL IVP SCH (08:34)
[2018-09-03] MEDS: ENOXAPARIN 40 MG/0.4 ML SYR SUBQ SCH (08:35)
--- NOTE | 2018-09-03 08:42 | NUR ---
ADMINISTERED MEDS PER MD ORDER, PATIENT TOLERATED WELL. PATIENT COMPLAINED 9/10 CHEST PAIN AND FEELS RESTLESS AND IRRITABILITY. ADMINISTERED PRN PAIN MED MORPHINE PER MD ORDER, WILL REASSESS PAIN SHORTLY. PATIENT IS AWAKE AND WATCHING TV ON BED. TELE MONITOR ATTACHED. SAFETY MEASURES IN PLACE. BED ALARM ACTIVATED. BED IN LOW POSITION AND CALL LIGHT WITHIN REACH. INSTRUCTED PATIENT TO USE CALL LIGHT FOR ANY ASSISTANCE AND PATIENT WAS AWARE.
--- NOTE | 2018-09-03 09:44 | NUR ---
PATIENT IS SITTING UP ON BED AND WATCHING TV. PATIENT DENIES PAIN AND SOB. NO SIGNS OF DISTRESS NOTED. SAFETY MEASURES IN PLACE. TELE MONITOR ATTACHED. BED ALARM ACTIVATED. INSTRUCTED PATIENT TO USE THE CALL LIGHT FOR ANY ASSISTANCE AND PATIENT WAS AWARE.
--- NOTE | 2018-09-03 11:15 | NUR ---
PATIENT IS AWAKE AND LYING ON BED. DENIES PAIN AND SOB. RESPIRATION EVEN AND UNLABORED ON RA. NO SIGNS OF DISTRESS NOTED. TELE MONITOR ATTACHED. BED IN LOW POSITION AND CALL LIGHT WITHIN REACH. INSTRUCTED PATIENT TO USE THE CALL LIGHT FOR ANY ASSISTANCE AND PATIENT WAS AWARE.
[2018-09-03 12:00] VITALS: BP 117/73
[2018-09-03] MEDS: INSULIN LISPRO SLIDING SCALE 100 UNITS/ML VIAL SUBQ PRN (12:07)
--- NOTE | 2018-09-03 12:33 | NUR ---
PATIENT COMPLAINED 9/10 PAIN, ADMINISTERED PRN PAIN MED, PATIENT TOLERATED WELL. PATIENT IS RESTING ON BED. TELE MONITOR ATTACHED. BED ALARM ACTIVATED. BED IN LOW POSITION AND CALL LIGHT WITHIN REACH.
--- NOTE | 2018-09-03 13:10 | NUR ---
PATIENT IS AWAKE AND SITTING UP ON BED. PATIENT IS WATCHING TV. DENIES PAIN AND SOB. NO SIGNS OF DISTRESS NOTED. TELE MONITOR ATTACHED. BED IN LOW POSITION AND CALL LIGHT WITHIN REACH. INSTRUCTED PATIENT TO USE THE CALL LIGHT FOR ANY ASSISTANCE AND PATIENT WAS AWARE.
--- NOTE | 2018-09-03 14:43 | NUR ---
DR RINALDI IS ASSESSING PATIENT AT BEDSIDE. NO SIGNS OF DISTRESS NOTED. TELE MONITOR IN PLACE. BED ALARM ACTIVATED. BED IN LOW POSITION AND CALL LIGHT WITHIN REACH. INSTRUCTED PATIENT TO USE THE CALL LIGHT FOR ANY ASSISTANCE AND PATIENT WAS AWARE.
--- NOTE | 2018-09-03 15:13 | NUR ---
PATIENT IS AWAKE AND WATCHING TV ON BED. DENIES PAIN AND SOB. RESPIRATION EVEN AND UNLABORED ON RA. NO SIGNS OF DISTRESS. TELE MONITOR ATTACHED. SAFETY MEASURES IN PLACE. BED ALARM ACTIVATED. BED IN LOW POSITION AND CALL LIGHT WITHIN REACH. INSTRUCTED PATIENT TO USE THE CALL LIGHT FOR ANY ASSISTANCE AND PATIENT WAS AWARE.
[2018-09-03 16:00] VITALS: BP 110/68
--- NOTE | 2018-09-03 17:04 | NUR ---
PATIENT IS SITTING ON THE EDGE OF BED AND WATCHING TV. DENIES PAIN AND SOB. NO SIGNS OF DISTRESS NOTED. TELE MONITOR IN PLACE. SAFETY MEASURES IN PLACE. BED IN LOW POSITION AND CALL LIGHT WITHIN REACH. INSTRUCTED PATIENT TO USE THE CALL LIGHT FOR ANY ASSISTANCE AND PATIENT WAS AWARE.
--- NOTE | 2018-09-03 18:23 | NUR ---
PATIENT IS RESTING ON BED AT THIS TIME. DENIES PAIN AND SOB. RESPIRATION EVEN AND UNLABORED. NO SIGNS OF DISTRESS NOTED. TELE MONITOR ATTACHED. BED IN LOW POSITION AND CALL LIGHT WITHIN REACH.
--- NOTE | 2018-09-03 19:05 | NUR ---
RECEIVED BEDSIDE REPORT FROM DAY SHIFT NURSE. PATIENT IS AWAKE, ALERT, AND COOPERATIVE. RESPIRATION EVEN UNLABORED ON ROOM AIR. NO DISTRESS NOTED. SKIN IS WARM AND DRY. DENIES PAIN. RIGHT IJ IV NOTED PATENT AND INTACT. PLAN OF CARE WAS DISCUSSED. ALL SAFETY MEASURES IN PLACE. BED IS AT LOW POSITION. CALL LIGHT WITHIN REACH. WILL CONTINUE TO MONITOR.
--- NOTE | 2018-09-03 19:13 | NUR ---
ENDORSED PATIENT AT BEDSIDE TO BRAKE [address] FREIGHT NURSE FOR CONTINUITY OF CARE. PATIENT IS RESTING ON BED AT THIS TIME. RESPIRATION EVEN AND UNLABORED ON RA. NO SIGNS OF DISTRESS NOTED. PATIENT IS IN STABLE CONDITION. BED IN LOW POSITION AND CALL LIGHT WITHIN REACH.
[2018-09-03 20:00] VITALS: BP 130/79
--- NOTE | 2018-09-03 20:00 | NUR ---
INITIAL ASSESSMENT DONE. VITALS WERE TAKEN. NO DISTRESS NOTED. WILL CONTINUE TO MONITOR
--- NOTE | 2018-09-03 21:00 | NUR ---
CHECKED BLOOD GLUCOSE. PT BLOOD GLUCOSE 180. NO NEED FOR COVERAGE. WILL CONTINUE TO MONITOR.
--- NOTE | 2018-09-03 22:45 | NUR ---
PATIENT COMPLAINED OF CHEST PAIN 8/10 NO DISTRESS NOTED. WILL CONTINUE TO MONITOR.
--- NOTE | 2018-09-03 23:00 | NUR ---
PATIENT SLEEPING RESPIRATION EVEN UNLABORED ON ROOM AIR. NO DISTRESS NOTED. WILL CONTINUE TO MONITOR.
[2018-09-04] VITALS: BP 113/75
--- NOTE | 2018-09-04 | NUR ---
VITALS WERE TAKEN. PATIENT CONDITION STABLE. NO DISTRESS NOTED. WILL CONTINUE TO MONITOR.
--- NOTE | 2018-09-04 02:00 | NUR ---
CHECKED PATIENT. PATIENT SLEEPING RESPIRATION EVEN UNLABORED ON ROOM AIR. NO DISTRESS NOTED. WILL CONTINUE TO MONITOR.
[2018-09-04 04:00] VITALS: BP 110/73
--- NOTE | 2018-09-04 04:00 | NUR ---
VITALS WERE TAKEN. PATIENT CONDITION STABLE. NO DISTRESS NOTED. WILL CONTINUE TO MONITOR.
[2018-09-04] MEDS: INSULIN LISPRO SLIDING SCALE 100 UNITS/ML VIAL SUBQ PRN ×2 (06:11→20:55)
[2018-09-04] MEDS: BLOOD GLUCOSE MONITORING 1 DEV DEV FS SCH ×4 (06:26→20:53)
--- NOTE | 2018-09-04 07:16 | NUR ---
RECEIVED BEDSIDE REPORT FROM ACID CHANGER NURSE FOR CONTINUITY OF CARE. PATIENT IS AWAKE AND SITTING UP ON BED AT THIS TIME. PATIENT IS AAOX4. DENIES PAIN AND SOB. RESPIRATION EVEN AND UNLABORED ON RA. NO SIGNS OF DISTRESS NOTED. RIJ IN PLACE, INTACT AND CLEAN ,SL PER MD ORDER. SKIN INTACT AND CLEAN. PATIENT IS ABLE TO AMBULATE WITH ASSIST. DISCUSSED PLAN OF CARE WITH PATIENT AND PATIENT VERBALIZED UNDERSTAND. TELE MONITOR ATTACHED. BED ALARM ACTIVATED. BED IN LOW POSITION AND CALL LIGHT WITHIN REACH. INSTRUCTED PATIENT TO USE THE CALL LIGHT FOR ANY ASSISTANCE AND HE VERBALIZED OK.
--- NOTE | 2018-09-04 07:16 | NUR ---
ENDORSED PATIENT TO DAY SHIFT NURSE FOR CONTINUITY OF CARE. PATIENT CONDITION STABLE.
[2018-09-04 08:00] VITALS: BP 107/74
[2018-09-04 08:13] LABS: ANION GAP 12.5 (8-16); CARBON DIOXIDE 24.2 mmol/L (21-32); CREATININE 1.3 mg/dL (0.7-1.3); POTASSIUM 4.7 mmol/L (3.5-5.1)
[2018-09-04 08:14] LABS: PHOSPHORUS 3.7 mg/dL (2.5-4.9)
[2018-09-04 08:15] LABS: BASOPHILS % (AUTO) 0.6 % (0.0-2.0); EOSINOPHILS # (AUTO) 0.1 K/uL (0-0.4); EOSINOPHILS % (AUTO) 2.4 % (0.0-4.0); HEMATOCRIT 31.5 % (36-52); HEMOGLOBIN 10.2 g/dL (12.0-18.0); LYMPHOCYTES % (AUTO) 25.8 % (20.5-51.1); MEAN CORPUSCULAR HEMOGLOBIN 25 pg (27-31); MEAN CORPUSCULAR HGB CONC 32 g/dL (33-37); MEAN CORPUSCULAR VOLUME 78.8 fL (80-94); MONOCYTES # (AUTO) 0.4 K/uL (0.8-1.0); MONOCYTES % (AUTO) 9.1 % (1.7-9.3); NEUTROPHILS # (AUTO) 2.4 K/uL (1.8-7.7); NEUTROPHILS % (AUTO) 62.1 % (42.2-75.2); PLATELET COUNT (AUTO) 163 K/uL (140-450); RED CELL DISTRIBUTION WIDTH 19.8 % (11.6-13.7); WHITE BLOOD COUNT (AUTO) 3.9 K/uL (4.8-10.8)
[2018-09-04] MEDS: MORPHINE SULFATE 2 MG/ML SYR IVP PRN ×3 (08:38→21:18)
[2018-09-04] MEDS: metFORMIN 500 MG TAB PO SCH ×3 (08:38→17:26)
[2018-09-04] MEDS: ASPIRIN 81 MG TAB.CHEW PO SCH (08:39)
[2018-09-04] MEDS: FUROSEMIDE 20 MG/2 ML VIAL IVP SCH (08:40)
--- NOTE | 2018-09-04 08:40 | NUR ---
ADMINISTERED MEDS PER MD ORDER, PATIENT TOLERATED WELL. PATIENT COMPLAINED 9/10 PAIN, MEDICATED WITH PRN PAIN MED. PATIENT IS SITTING UP ON BED AND WATCHING TV. TELE MONITOR IN PLACE. BED IN LOW POSITION AND CALL LIGHT WITHIN REACH. INSTRUCTED PATIENT TO USE THE CALL LIGHT FOR ANY ASSISTANCE AND PATIENT WAS AWARE.
[2018-09-04] MEDS: ENOXAPARIN 40 MG/0.4 ML SYR SUBQ SCH (08:43)
--- NOTE | 2018-09-04 09:45 | NUR ---
PATIENT IS RESTING ON BED. DENIES PAIN AND SOB. NO SIGNS OF DISTRESS NOTED. TELE MONITOR IN PLACE. SAFETY MEASURES IN PLACE. INSTRUCTED PATIENT TO USE THE CALL LIGHT FOR ANY ASSISTANCE AND PATIENT WAS AWARE.
[2018-09-04] MEDS ORDERED: METO25TA PO (10:07)
[2018-09-04] MEDS ORDERED: ASPI81CT95 PO (10:07)
[2018-09-04] MEDS ORDERED: METOPROLOL 25 MG TAB PO SCH (10:15)
--- NOTE | 2018-09-04 11:40 | NUR ---
PATIENT IS AWAKE AND WATCHING TV ON BED. DENIES PAIN AND SOB. NO SIGNS OF DISTRESS NOTED. TELE MONITOR IN PLACE. SAFETY MEASURES IN PLACE. INSTRUCTED PATIENT TO USE THE CALL LIGHT FOR ANY ASSISTANCE AND PATIENT WAS AWARE.
[2018-09-04 12:00] VITALS: BP 112/71
--- NOTE | 2018-09-04 13:10 | NUR ---
DR RINALDI IS ASSESSING AND TALKING TO PATIENT AT BEDSIDE. NO SIGNS OF DISTRESS NOTED. PATIENT IS AWAKE AND WATCHING TV ON BED. TELE MONITOR ATTACHED. BED IN LOW POSITION AND CALL LIGHT WITHIN REACH.
--- NOTE | 2018-09-04 13:54 | NUR ---
ADMINISTERED MEDS PER MD ORDER, PATIENT TOLERATED WELL. PATIENT COMPLAINED OF 9/10 PAIN, MEDICATED WITH PRN PAIN MED MORPHINE. TELE MONITOR ATTACHED. SAFETY MEASURES IN PLACE.
[2018-09-04] MEDS ORDERED: FOLIC ACID 1 MG TAB PO SCH (14:00)
[2018-09-04] MEDS ORDERED: THIAMINE 200 MG/2 ML VIAL IM SCH (14:00)
[2018-09-04 16:00] VITALS: BP 98/59
--- NOTE | 2018-09-04 17:26 | NUR ---
ADMINISTERED MED PER MD ORDER, PATIENT TOLERATED WELL. PATIENT IS SITTING UP ON BED AND WATCHING TV. DENIES PAIN AND SOB. RESPIRATION EVEN AND UNLABORED. NO SIGNS OF DISTRESS NOTED. TELE MONITOR IN PLACE. BED IN LOW POSITION AND CALL LIGHT WITHIN REACH. INSTRUCTED PATIENT TO USE THE CALL LIGHT FOR ANY ASSISTANCE AND PATIENT WAS AWARE.
--- NOTE | 2018-09-04 19:08 | NUR ---
ENDORSED PATIENT AT BEDSIDE TO C++ PROFESSOR NURSE FOR CONTINUITY OF CARE. PATIENT IS RESTING ON BED. DENIES PAIN AT THIS TIME. NO SIGNS OF DISTRESS NOTED. SAFETY MEASURES IN PLACE. PATIENT IS IN STABLE CONDITION.
--- NOTE | 2018-09-04 19:10 | NUR ---
RECEIVED BEDSIDE REPORT FROM DAY SHIFT NURSE. PATIENT IS AWAKE, ALERT, AND COOPERATIVE. RESPIRATION EVEN UNLABORED ON ROOM AIR. NO DISTRESS NOTED. SKIN IS WARM AND DRY. IV PATENT AND INTACT. PLAN OF CARE WAS DISCUSSED. ALL SAFETY MEASURES IN PLACE. BED IS AT LOW POSITION. CALL LIGHT WITHIN REACH AND VERBALIZES ITS USE. WILL CONTINUE TO MONITOR.
[2018-09-04 20:00] VITALS: BP 101/69
--- NOTE | 2018-09-04 20:00 | NUR ---
INITIAL ASSESSMENT DONE. VITALS WERE TAKEN. PATIENT IS IN STABLE CONDITION. WILL CONTINUE TO MONITOR.
[2018-09-04] MEDS: METOPROLOL 25 MG TAB PO SCH (20:57)
--- NOTE | 2018-09-04 21:00 | NUR ---
ALL SCHEDULED MEDS WERE GIVEN PER ORDER. PATIENT COMPLAINED OF PAIN 8/10. PRN PAIN MED ADMINISTERED. WILL CONTINUE TO MONITOR.
--- NOTE | 2018-09-04 22:58 | NUR ---
PATIENT IN BED WATCHING TV RESPIRATION EVEN UNLABORED ON ROOM AIR. NO DISTRESS NOTED. WILL CONTINUE TO MONITOR.
[2018-09-05] VITALS (7 sets, daily range): BP systolic 98–128; BP diastolic 64–77
--- NOTE | 2018-09-05 | NUR ---
VITALS WERE TAKEN. PATIENT CONDITION STABLE. NO DISTRESS NOTED. WILL CONTINUE TO MONITOR.
--- NOTE | 2018-09-05 02:00 | NUR ---
CHECKED PATIENT. PATIENT SLEEPING RESPIRATION EVEN UNLABORED ON ROOM AIR. NO DISTRESS NOTED. WILL CONTINUE TO MONITOR.
--- NOTE | 2018-09-05 04:00 | NUR ---
VITALS WERE TAKEN. PATIENT CONDITION STABLE. NO DISTRESS NOTED. WILL CONTINUE TO MONITOR.
[2018-09-05 06:08] LABS: PHOSPHORUS 4.4 mg/dL (2.5-4.9)
[2018-09-05] MEDS: BLOOD GLUCOSE MONITORING 1 DEV DEV FS SCH ×4 (06:12→20:28)
[2018-09-05 06:34] LABS: BASOPHILS % (AUTO) 0.4 % (0.0-2.0); EOSINOPHILS # (AUTO) 0.1 K/uL (0-0.4); EOSINOPHILS % (AUTO) 1.9 % (0.0-4.0); HEMATOCRIT 31.4 % (36-52); HEMOGLOBIN 10.1 g/dL (12.0-18.0); LYMPHOCYTES # (AUTO) 1.2 K/uL (2.0-11.5); LYMPHOCYTES % (AUTO) 25.4 % (20.5-51.1); MEAN CORPUSCULAR HEMOGLOBIN 25 pg (27-31); MEAN CORPUSCULAR HGB CONC 32 g/dL (33-37); MONOCYTES # (AUTO) 0.4 K/uL (0.8-1.0); MONOCYTES % (AUTO) 9.5 % (1.7-9.3); NEUTROPHILS % (AUTO) 62.8 % (42.2-75.2); PLATELET COUNT (AUTO) 164 K/uL (140-450); RED BLOOD CELL COUNT(AUTO) 3.98 MIL/uL (4.20-6.10); RED CELL DISTRIBUTION WIDTH 20.1 % (11.6-13.7); WHITE BLOOD COUNT (AUTO) 4.7 K/uL (4.8-10.8)
--- NOTE | 2018-09-05 07:20 | NUR ---
ENDORSED PATIENT TO DAY SHIFT NURSE FOR CONTINUITY OF CARE. PATIENT CONDITION STABLE.
--- NOTE | 2018-09-05 07:21 | NUR ---
RECEIVED BEDSIDE REPORT FROM SONY URRUTIA. PATIENT ON TELE MONITOR AND STANDARD PRECAUTIONS IN PLACE. PATIENT AAOX4 AND COMMUNICATES APPROPRIATELY, ON ROOM AIR, SKIN INTACT. PATIENT AMBULATORY AND CONTINENT. IV ON R IJ SALINE LOCK, IV PATENT AND INTACT. BED IN LOW POSITION, CALL LIGHT WITHIN REACH, SIDE RAILS X2 UP
[2018-09-05 08:40] LABS: CREATININE 1.7 mg/dL (0.7-1.3)
[2018-09-05] MEDS: FOLIC ACID 1 MG TAB PO SCH (09:27)
[2018-09-05] MEDS: metFORMIN 500 MG TAB PO SCH ×3 (09:27→16:41)
[2018-09-05] MEDS: ASPIRIN 81 MG TAB.CHEW PO SCH (09:27)
[2018-09-05] MEDS: METOPROLOL 25 MG TAB PO SCH ×2 (09:28→20:27)
[2018-09-05] MEDS: FUROSEMIDE 20 MG/2 ML VIAL IVP SCH (09:28)
[2018-09-05] MEDS: THIAMINE 200 MG/2 ML VIAL IM SCH (09:30)
[2018-09-05] MEDS: ENOXAPARIN 40 MG/0.4 ML SYR SUBQ SCH (09:32)
--- NOTE | 2018-09-05 09:43 | NUR ---
ADMINISTERED SCHEDULED MEDS. PATIENT TOLERATED WELL
[2018-09-05] MEDS: INSULIN LISPRO SLIDING SCALE 100 UNITS/ML VIAL SUBQ PRN ×2 (12:42→20:31)
--- NOTE | 2018-09-05 12:45 | NUR ---
PATIENT SITTING IN BED, ADMINISTERED SCHEDULED MEDS. PATIENT TOLERATED WELL
--- NOTE | 2018-09-05 13:38 | NUR ---
CALLED [facility] CLARIFIED HIS PCP AND CONFIRMED THAT DR MILLER IS HIS PCP MADE APPOINTMENT WITH DR MILLER ON WEDNESDAY AT 0940 THE ADDRESS IS [address] [place] [address]. PHONE # [phone].
--- NOTE | 2018-09-05 14:00 | NUR ---
PATIENT AMBULATED TO RESTROOM, ON ROOM AIR, NO DISTRESS NOTED
[2018-09-05] MEDS ORDERED: FUROSEMIDE 40 MG/4 ML VIAL IVP SCH ×2 (14:40→16:45)
[2018-09-05] MEDS: MORPHINE SULFATE 2 MG/ML SYR IVP PRN ×2 (16:41→21:56)
--- NOTE | 2018-09-05 16:47 | NUR ---
DEVELOPMENT ADVISOR, CRIS, PROVIDED PATIENT WITH APPOINTMENT DATE. PATIENT VERBALIZED UNDERSTANDING
--- NOTE | 2018-09-05 19:20 | NUR ---
GAVE BEDSIDE REPORT TO SONY ZARAGOZA. PATIENT Addendum: 09/05/18 at 1941 by Erica Webb RN PATIENT ENDORSED IN STABLE CONDITION
--- NOTE | 2018-09-05 19:28 | NUR ---
RECEIVED PT IN STABLE CONDITION FROM AM NURSE FOR CONTINUITY OF CARE. ON TELE MONITOR. STANDING UP INSIDE ROOM. WITH NO C/O OF ANY DISCOMFORT NOR PAIN NOTED. HAS HL ON THE RT IJ G#22. CLEAR AND PATENT. WITH GOOD BLOOD RETURN AFTER FLUSHED WITH NS . PLAN OF CARE DISCUSSED AND VERBALIZED UNDERSTANDING. BED ON LOW POSITION. CALL LIGHT WITHIN EASY REACH. WILL CONTINUE TO MONITOR.
--- NOTE | 2018-09-05 20:31 | NUR ---
BLOOD SUGAR WAS CHECKED RESULT 164. INSULIN COVERAGE GIVEN SUBQ. PROVIDED WITH HS SNACK. WILL CONTINUE TO MONITOR.
--- NOTE | 2018-09-05 22:56 | NUR ---
MADE ROUNDS. PT IS STILL AWAKE. BUT HE SAID NO MORE CHEST PAIN AT THIS TIME. WILL CONTINUE TO MONITOR.
--- NOTE | 2018-09-06 00:57 | NUR ---
MADE ROUNDS. PT AWAKE. BUT NO C/O ANY DISCOMFORT NOTED. INSTRUCTED TO CALL IF NEED ANY ASSISTANCE.
--- NOTE | 2018-09-06 02:00 | NUR ---
MADE ROUNDS. PT ASLEEP. NO S/S OF ANY DISCOMFORT NOTED.
[2018-09-06 03:46] VITALS: BP 118/73
[2018-09-06] MEDS: MORPHINE SULFATE 2 MG/ML SYR IVP PRN ×2 (03:50→20:55)
--- NOTE | 2018-09-06 03:50 | NUR ---
PT AWAKE AND C/O PAIN . MEDICATED ORDERED. WILL CONTINUE TO MONITOR.
--- NOTE | 2018-09-06 05:30 | NUR ---
PT AWAKE. AMBULATE INSIDE ROOM. NO C/O ANY PAIN AT THIS TIME.
[2018-09-06] MEDS: BLOOD GLUCOSE MONITORING 1 DEV DEV FS SCH ×4 (06:09→20:58)
[2018-09-06] MEDS: INSULIN LISPRO SLIDING SCALE 100 UNITS/ML VIAL SUBQ PRN ×4 (06:10→21:04)
--- NOTE | 2018-09-06 06:10 | NUR ---
BLOOD SUGAR WAS CHECKED RESULT 270. INSULIN COVERAGE GIVEN SUBQ. PT HAD SOME JUICE.
[2018-09-06 06:44] LABS: BASOPHILS % (AUTO) 0.5 % (0.0-2.0); EOSINOPHILS # (AUTO) 0.1 K/uL (0-0.4); EOSINOPHILS % (AUTO) 2.8 % (0.0-4.0); HEMATOCRIT 29.6 % (36-52); HEMOGLOBIN 9.8 g/dL (12.0-18.0); LYMPHOCYTES % (AUTO) 23.4 % (20.5-51.1); MEAN CORPUSCULAR HEMOGLOBIN 26 pg (27-31); MEAN CORPUSCULAR HGB CONC 33 g/dL (33-37); MEAN CORPUSCULAR VOLUME 78.6 fL (80-94); MONOCYTES # (AUTO) 0.3 K/uL (0.8-1.0); NEUTROPHILS # (AUTO) 2.8 K/uL (1.8-7.7); NEUTROPHILS % (AUTO) 65.3 % (42.2-75.2); PLATELET COUNT (AUTO) 166 K/uL (140-450); RED BLOOD CELL COUNT(AUTO) 3.77 MIL/uL (4.20-6.10); RED CELL DISTRIBUTION WIDTH 20.2 % (11.6-13.7); WHITE BLOOD COUNT (AUTO) 4.4 K/uL (4.8-10.8)
[2018-09-06 07:11] LABS: CARBON DIOXIDE 22.8 mmol/L (21-32); CREATININE 1.6 mg/dL (0.7-1.3); POTASSIUM 4.8 mmol/L (3.5-5.1)
--- NOTE | 2018-09-06 07:15 | NUR ---
ENDORSED PT IN STABLE CONDITION TO AM NURSE.
--- NOTE | 2018-09-06 07:16 | NUR ---
RECEIVED BEDSIDE REPORT FROM SONY ZARAGOZA. PATIENT ON TELE MONITOR AND STANDARD PRECAUTIONS IN PLACE. PATIENT AAOX4 AND COMMUNICATES APPROPRIATELY, ON ROOM AIR, NO DISTRESS NOTED. ABLE TO AMBULATE WITHOUT ASSIST. SKIN INTACT. IV ON R IJ SALINE LOCK, IV PATENT AND INTACT. BED IN LOW POSITION, CALL LIGHT WITHIN REACH, SIDE RAILS X2 UP
[2018-09-06 07:24] LABS: PHOSPHORUS 4.8 mg/dL (2.5-4.9)
[2018-09-06 08:00] VITALS: BP 106/65
[2018-09-06] MEDS: METOPROLOL 25 MG TAB PO SCH ×2 (08:13→20:55)
[2018-09-06] MEDS: ASPIRIN 81 MG TAB.CHEW PO SCH (08:13)
[2018-09-06] MEDS: FOLIC ACID 1 MG TAB PO SCH (08:14)
[2018-09-06] MEDS: FUROSEMIDE 40 MG/4 ML VIAL IVP SCH (08:14)
[2018-09-06] MEDS: THIAMINE 200 MG/2 ML VIAL IM SCH (08:14)
[2018-09-06] MEDS: metFORMIN 500 MG TAB PO SCH (08:14)
[2018-09-06] MEDS: ENOXAPARIN 40 MG/0.4 ML SYR SUBQ SCH (08:16)
--- NOTE | 2018-09-06 08:25 | NUR ---
PATIENT SITTING UP IN BED WATCHING TV, ON ROOM AIR, NO DISTRESS NOTED, ADMINISTERED SCHEDULED MEDS
--- NOTE | 2018-09-06 10:14 | NUR ---
PATIENT SLEEPING, ON ROOM AIR, NO DISTRESS NOTED
--- NOTE | 2018-09-06 10:51 | NUR ---
SPOKE TO CLARITA FROM MEDICAL RECORDS FROM [facility] AT [phone]. I EXPLAINED TO HER THAT I NEEDED MEDICAL RECORDS AND THE MEDICAL RECORDS WE GOT WAS INCOMPLETE. SHE SAID SHE WILL SEND IT BUT IT WILL TAKE SOME TIME BECAUSE THERE ARE A LOT OF PAPERWORK.
[2018-09-06 12:00] VITALS: BP 106/68
--- NOTE | 2018-09-06 12:15 | NUR ---
ADMINISTERED 2 UNITS INSULIN FOR BLOOD SUGAR 178. PATIENT TOLERATED WELL, NOW EATING LUNCH
--- NOTE | 2018-09-06 12:19 | NUR ---
DR. YEPEZ AT BEDSIDE, TOLD PATIENT TO STAY ONE MORE NIGHT TO CONTINUE IV LASIX SINCE HE STILL HAS FLUID IN HIS LUNGS. NOTIFIED DR. YEPEZ OF MEDICAL RECORDS SENT FROM [facility] AND THAT THEY WILL SEND OVER MORE MEDICAL RECORDS BUT IT MAY TAKE A FEW DAYS
--- NOTE | 2018-09-06 12:46 | NUR ---
NOTIFIED DR. YEPEZ OF CR 1.6 AND THAT METFORMIN SHOULD NOT BE GIVEN FOR CR >1.[address] YEPEZ ORDERED TO DC METFORMIN
--- NOTE | 2018-09-06 14:31 | NUR ---
PATIENT LYING IN BED COMFORTABLY NO COMPLAINTS NOW
--- NOTE | 2018-09-06 15:07 | NUR ---
09/06/18 RD INITIAL ASSESSMENT COMPLETED PLEASE REFER TO NUTRITION ASSESSMENT UNDER CARE ACTIVITY FOR ESTIMATED NUTRITIONAL NEEDS. 1. CONTINUE CARDIAC AND CCHO DIET TOLERATED 2. PT WAS PROVIDED WITH NUTRITION EDUCATION HANDOUTS FOR DIABETIC, RENAL AND CARDIAC DIET RECOMMENDATIONS. 3. RD TO FOLLOW-UP 3-5 DAYS, MODERATE RISK CRUZ LINDSAY RD
[2018-09-06 16:00] VITALS: BP 103/67
--- NOTE | 2018-09-06 16:31 | NUR ---
PATIENT SITTING UP IN BED, ON ROOM AIR, NO DISTRESS NOTED. ADMINISTERED 2 UNITS INSULIN FOR BLOOD SUGAR 183
--- NOTE | 2018-09-06 18:21 | NUR ---
DR MCKINNEY HERE, DR MCKINNEY MADE AWARE THAT THE PATIENTS MEDICAL RECORDS ARE IN THE CHART. HE SAID HE WILL TAKE A LOOK AT THEM
--- NOTE | 2018-09-06 19:10 | NUR ---
GAVE BEDSIDE REPORT TO NIK AND JAE. PATIENT ENDORSED IN STABLE CONDITION
--- NOTE | 2018-09-06 19:10 | NUR ---
RECEIVED REPORT FROM DAY SHIFT NURSE FOR CONTINUITY OF CARE. PATIENT SITTING UP IN BED, WATCHING TV. PATIENT IS IN STABLE CONDITION, ON ROOM AIR, HAS RIGHT IJ PERIPHERAL IV LINE, AND DENIES PAIN AT THIS TIME. BED IS IN LOW POSITION, SIDE RAILS ARE UP, FALL RISK PRECAUTION IN PLACE, AND CALL LIGHT WITHIN REACH. WILL MONITOR PATIENT THROUGHOUT POT SANDER.
[2018-09-06 20:00] VITALS: BP 111/71
--- NOTE | 2018-09-06 20:55 | NUR ---
ADMINISTERED MEDICATIONS ORDERED. PATIENT REPORTS CHEST PAIN RATE OF 8/10, ADMINISTERED PAIN MEDICATION IV PUSH ORDERED. PATIENT TOLERATED MEDICATIONS WELL.
--- NOTE | 2018-09-06 21:55 | NUR ---
MADE ROUNDS, PATIENT LYING DOWN IN BED WATCHING TV. PATIENT REPORTS OF PAIN RELIEF. WILL CONTINUE TO MONITOR PATIENT.
[2018-09-07] VITALS: BP 111/71
--- NOTE | 2018-09-07 | NUR ---
MADE ROUNDS, PATIENT LYING IN BED, SLEEPING. VITAL SIGNS TAKEN AND CHARTED. PATIENT DENIES PAIN AT THIS TIME. INSTRUCTED TO USE CALL LIGHT WHEN NEEDED. WILL CONTINUE TO MONITOR PATIENT.
--- NOTE | 2018-09-07 02:03 | NUR ---
MADE ROUNDS, PATIENT LYING DOWN IN BED, ASLEEP WITH NO SIGNS OF DISTRESS NOTED. WILL CONTINUE TO MONITOR PATIENT.
[2018-09-07 03:35] VITALS: BP 116/72
[2018-09-07] MEDS: MORPHINE SULFATE 2 MG/ML SYR IVP PRN ×2 (03:41→10:36)
--- NOTE | 2018-09-07 03:41 | NUR ---
PATIENT C/O CHEST PAIN 10/29. ADMINISTERED PAIN MEDICATION IVP ORDERED. WILL MONITOR PATIENT.
--- NOTE | 2018-09-07 05:15 | NUR ---
PATIENT LYING IN BED AWAKE, WATCHING TV, DENIES PAIN AT THIS TIME. WILL CONTINUE TO MONITOR PATIENT.
[2018-09-07] MEDS: BLOOD GLUCOSE MONITORING 1 DEV DEV FS SCH ×2 (06:09→11:41)
[2018-09-07] MEDS: INSULIN LISPRO SLIDING SCALE 100 UNITS/ML VIAL SUBQ PRN ×2 (06:13→11:43)
--- NOTE | 2018-09-07 06:13 | NUR ---
BLOOD SUGAR THIS AM 174. INSULIN COVERAGE HUMALOG 2 UNITS SUBQ GIVEN ORDERED.
--- NOTE | 2018-09-07 06:57 | NUR ---
WILL ENDORSE TO DAY SHIFT NURSE PATIENT'S CONTINUITY OF CARE. PATIENT IS IN STABLE CONDITION, AND DENIES ANY PAIN AT THIS TIME..
[2018-09-07 06:58] LABS: BASOPHILS % (AUTO) 0.4 % (0.0-2.0); EOSINOPHILS # (AUTO) 0.1 K/uL (0-0.4); EOSINOPHILS % (AUTO) 2.1 % (0.0-4.0); HEMATOCRIT 33.9 % (36-52); HEMOGLOBIN 10.7 g/dL (12.0-18.0); LYMPHOCYTES # (AUTO) 1.9 K/uL (2.0-11.5); LYMPHOCYTES % (AUTO) 31.2 % (20.5-51.1); MEAN CORPUSCULAR HEMOGLOBIN 25 pg (27-31); MEAN CORPUSCULAR HGB CONC 32 g/dL (33-37); MEAN CORPUSCULAR VOLUME 79.7 fL (80-94); MONOCYTES # (AUTO) 0.5 K/uL (0.8-1.0); MONOCYTES % (AUTO) 7.8 % (1.7-9.3); NEUTROPHILS # (AUTO) 3.5 K/uL (1.8-7.7); NEUTROPHILS % (AUTO) 58.5 % (42.2-75.2); PLATELET COUNT (AUTO) 182 K/uL (140-450); RED BLOOD CELL COUNT(AUTO) 4.25 MIL/uL (4.20-6.10); RED CELL DISTRIBUTION WIDTH 20.2 % (11.6-13.7)
[2018-09-07 07:07] LABS: ALBUMIN 2.7 g/dL (3.4-5.0); CREATININE 1.5 mg/dL (0.7-1.3); TOTAL BILIRUBIN 0.4 mg/dL (0.0-1.0)
[2018-09-07 07:13] LABS: MAGNESIUM 2.1 mg/dL (1.8-2.4); PHOSPHORUS 4.8 mg/dL (2.5-4.9)
--- NOTE | 2018-09-07 07:15 | NUR ---
RECEIVED BEDSIDE REPORT FROM JUAN LUIS RN. PATIENT ON TELE MONITOR AND STANDARD PRECAUTIONS IN PLACE. PATIENT AAOX4 AND ON ROOM AIR, NO DISTRESS NOTED. L KNEE SCAB PRESENT ELECTRICAL INSTRUMENTATION TECHNICIAN. PATIENT AMBULATORY AND CONTINENT. IV ON R IJ 22, PATENT AND INTACT, SALINE LOCK. BED IN LOW POSITION, CALL LIGHT WITHIN REACH, SIDE RAILS X2 UP
[2018-09-07 08:00] VITALS: BP 115/71
--- NOTE | 2018-09-07 08:55 | NUR ---
09/02/18 SW conducted an assessment with patient. Patient was alert and oriented x2 with periods of forgetfulness. Patient stated that his PCP is Dr. Stuart Higuera and that he was last seen 2 weeks ago. Patient stated that he uses mailing address [address] [place] [address], but he no longer lives at this address. Patient stated that he lives in a motel called [facility] off of [address] [place] [address] in [place], [place]. Patient does not identify as homeless. Patient stated he lives there with his brother who assists him with ADLs. SW made sure patient had weather-appropriate clothing. Patient stated that he uses no DME and that he is independent walking and bathing. Patient says, �My brother helps me out with cooking and grocery shopping.� Patient reports no history of mental health or SI/HI. Patient reports drinking a 12-pack of beer 1x a month. Patient reports smoking 1 pack a day and denies history of illicit drug use. Patient stated that his substance use is not a problem and refused resources. Patient receives $735 a month which he uses to rent rooms. Patient�s plan after discharge is to meet with brother and stay under his care at the [facility]. SW/CM will follow up as needed.
[2018-09-07] MEDS: THIAMINE 200 MG/2 ML VIAL IM SCH (09:00)
[2018-09-07] MEDS: FOLIC ACID 1 MG TAB PO SCH (09:21)
[2018-09-07] MEDS: FUROSEMIDE 40 MG/4 ML VIAL IVP SCH (09:21)
[2018-09-07] MEDS: METOPROLOL 25 MG TAB PO SCH (09:22)
[2018-09-07] MEDS: ASPIRIN 81 MG TAB.CHEW PO SCH (09:22)
[2018-09-07] MEDS: ENOXAPARIN 40 MG/0.4 ML SYR SUBQ SCH (09:24)
--- NOTE | 2018-09-07 09:30 | NUR ---
ADMINISTERED SCHEDULED MEDS. PATIENT TOLERATED WELL
--- NOTE | 2018-09-07 11:44 | NUR ---
BLOOD SUGAR 170, ADMINISTERED 2 UNITS INSULIN, PATIENT TOLERATED WELL
[2018-09-07 12:00] VITALS: BP 108/72
--- NOTE | 2018-09-07 12:20 | NUR ---
PATIENT REFUSING LUNCH. STATED HE WILL BE GOING HOME SOON AND WILL EAT AT HOME
--- NOTE | 2018-09-07 13:20 | NUR ---
DISCHARGE INSTRUCTIONS PROVIDED TO PATIENT. PATIENT IS BEING DISCHARGED HOME. STATES HE LIVES WITH HIS BROTHER. PNA AND FLU VACCINE RECEIVED 05/2018. PATIENT INSTRUCTED TO RETURN TO NEAREST ER IF HE EXPERIENCES SOB, FEVER, PAIN, OR WORSENING OF SYMPTOMS. HE IS AWARE OF APPOINTMENT WITH DR MILLER ON WEDNESDAY AT 0940 THE [address] IS [address] [place] [address]. PHONE # [phone]. SKIN IS INTACT. PROVIDED PRESCRIPTIONS FOR MEDICATIONS, COPIES MADE. ALL BELONGINGS SENT HOME WITH PATIENT, EXCEPT FOR JACKET, WHICH HE STATED TO THROW AWAY BECAUSE HE DOES NOT WANT IT ANYMORE. BUS PASS PROVIDED TO PATIENT. PATIENT VERBALIZED UNDERSTANDING, REMOVED WRIST BANDS AND IV, IV TIP INTACT. BED IN LOW POSITION, CALL LIGHT WITHIN REACH, SIDE RAILS X2 UP
== END 2018-09-07 14:33 | disposition home or self-care (01) | DRG 194 ==
LOC: MED 22:21 → INTOOBSV 23:29 → UNDOADMIN 23:29 → OBSVTOIN 23:29 → MTU 23:29
PROVIDERS: ADMIT Internal Medicine Pulmonary Disease; ATTEND Internal Medicine Pulmonary Disease
DX: I13.0 Hypertensive heart and chronic kidney disease with heart failure and stage 1 through stage 4 chronic kidney disease, or unspecified chronic kidney disease (principal); N17.0 Acute kidney failure with tubular necrosis; I50.23 Acute on chronic systolic (congestive) heart failure; E11.65 Type 2 diabetes mellitus with hyperglycemia; E44.1 Mild protein-calorie malnutrition; K74.60 Unspecified cirrhosis of liver; R07.89 Other chest pain; T44.7X6A Underdosing of beta-adrenoreceptor antagonists, initial encounter; F17.210 Nicotine dependence, cigarettes, uncomplicated; T46.4X6A Underdosing of angiotensin-converting-enzyme inhibitors, initial encounter; N18.9 Chronic kidney disease, unspecified; Z68.20 Body mass index [BMI] 20.0-20.9, adult; Z59.0 Homelessness; Z79.899 Other long term (current) drug therapy; Z91.138 Patient's unintentional underdosing of medication regimen for other reason; Y92.89 Other specified places as the place of occurrence of the external cause
CPT/HCPCS: 96360; 99285; G0378; 36415; 71045; 80048; 80053; 80305; 81001; 82948; 83735; 83880; 84100; 84484; 85025; 87081; J1650; J1815; J1940; J2270; J3411

== ENCOUNTER 2018-09-08 06:40 | Emergency (ER) | payer OTHER ==
[~2018-09-08] VITALS: Ht 162.6 cm; Wt 54.4 kg
[~2018-09-08 06:40] MED LIST changes: +ASPI81CT95 PO; +METO25TA PO
--- NOTE | 2018-09-08 06:40 | NUR ---
PT VICENTE WADDELL. TAKEN TO BED 11
[2018-09-08 06:55] VITALS: BP 123/67
--- NOTE | 2018-09-08 07:02 | NUR ---
Dr. Coles examining patient.
--- NOTE | 2018-09-08 07:05 | NUR ---
58 YO M VICENTE FROM BUS STOP WITH ORIGINAL COMPLAINT OF ABD PAIN. PT ARRIVES TO ED C/O WEAKNESS, RACING HEART RATE AND 8/10 TIGHT NON-RADIATING CHEST PAIN. PT DENIES ABD PAIN AT THIS TIME. PT STATES HE WAS SEEN AT [facility] APPROXIMATELY 4 HOURS AGO FOR [facility] S/SX AND HE STATES THAT "THEY DID NOTHING AND SENT HIM HOME". PT IS TACHYCARDIC AT THIS TIME- HR: 130. DENIES SOB, NVD. PT REPORTS HX OF A-FIB. -- PT AWAKE, A/O X 3. CONFUSED TO TIME. DIFFICULTY PROVIDING HX AND ACCURATE TIMELINE OF EVENTS. BEHAVIOR APPROPRIATE. -- SKIN PINK, WARM, DRY. BREATHING EVEN, UNLABORED. -- DR. DAVIS MADE AWARE OF PT STATUS. PMH-- CIRRHOSIS, OPEN HEART SX AT 8, HTN, ARTHRITIS
[2018-09-08] MEDS ORDERED: NACL 0.9% 500 ML IV ONE (07:15)
--- NOTE | 2018-09-08 07:20 | NUR ---
XRAY AT BEDSIDE
--- NOTE | 2018-09-08 07:22 | NUR ---
REPORT GIVEN TO SONY SALVADOR AND SONY LOMAX.
--- NOTE | 2018-09-08 07:23 | NUR ---
RECEIVED REPORT FROM PM RN AT BEDSIDE. BLOOD SUGAR CHECKED, 165 AT THIS TIME. X-RAY TA THE BEDSIDE. PROVIDED WARM BLANKET. WILL CONTINUE TO MONITOR PT.
[2018-09-08] MEDS ORDERED: KETOROLAC 30 MG/ML VIAL IM ONE (08:00)
--- NOTE | 2018-09-08 08:12 | NUR ---
ADMINISTETRED MEDS TO PT ORDERED. FLUID CANCELLED BY MD. PT MADE AWARE. LAB AT BEDSIDE TO DRAW BLOOD. WILL CONTINUE TO MONITOR PT.
[2018-09-08 08:27] LABS: BASOPHILS # (AUTO) 0.1 K/uL (0.00-0.22); EOSINOPHILS # (AUTO) 0.1 K/uL (0-0.4); EOSINOPHILS % (AUTO) 0.9 % (0.0-4.0); HEMOGLOBIN 10.2 g/dL (12.0-18.0); LYMPHOCYTES # (AUTO) 1.1 K/uL (2.0-11.5); LYMPHOCYTES % (AUTO) 14.4 % (20.5-51.1); MEAN CORPUSCULAR HEMOGLOBIN 25 pg (27-31); MEAN CORPUSCULAR HGB CONC 32 g/dL (33-37); MEAN CORPUSCULAR VOLUME 79.1 fL (80-94); MONOCYTES # (AUTO) 0.8 K/uL (0.8-1.0); MONOCYTES % (AUTO) 10.6 % (1.7-9.3); NEUTROPHILS # (AUTO) 5.4 K/uL (1.8-7.7); NEUTROPHILS % (AUTO) 73.1 % (42.2-75.2); PLATELET COUNT (AUTO) 207 K/uL (140-450); RED BLOOD CELL COUNT(AUTO) 4.04 MIL/uL (4.20-6.10); RED CELL DISTRIBUTION WIDTH 20.4 % (11.6-13.7); WHITE BLOOD COUNT (AUTO) 7.3 K/uL (4.8-10.8)
[2018-09-08 08:42] LABS: ANION GAP 15.5 (8-16); CARBON DIOXIDE 21.6 mmol/L (21-32); CREATININE 1.7 mg/dL (0.7-1.3); POTASSIUM 5.1 mmol/L (3.5-5.1)
[2018-09-08 08:46] LABS: PROTHROMBIN TIME 11.4 secs (10.8-13.4)
[2018-09-08 08:48] LABS: ALBUMIN 2.9 g/dL (3.4-5.0); TOTAL BILIRUBIN 0.7 mg/dL (0.0-1.0)
[2018-09-08 09:37] VITALS: BP 104/66
--- NOTE | 2018-09-08 09:37 | NUR ---
Patient discharged with v/s stable. Written and verbal after care instructions given and explained. Patient alert, oriented and verbalized understanding of instructions. Ambulatory with steady gait. All questions addressed prior to discharge. ID band removed. Patient advised to follow up with PMD. Opportunity to ask questions provided and answered.
== END 2018-09-08 09:37 | disposition home or self-care (01) ==
LOC: MED 06:40
DX: R07.89 Other chest pain (principal); R53.1 Weakness; E11.9 Type 2 diabetes mellitus without complications; I10 Essential (primary) hypertension; F17.200 Nicotine dependence, unspecified, uncomplicated; Z79.82 Long term (current) use of aspirin; Z79.899 Other long term (current) drug therapy; Z98.890 Other specified postprocedural states; Z95.1 Presence of aortocoronary bypass graft; Z79.84 Long term (current) use of oral hypoglycemic drugs
CPT/HCPCS: 36415; 71045; 80053; 82948; 83880; 84484; 85025; 85610; 85730; 93005; 96372; 99284; J1885; J7030; Q0092